=== PATIENT | female | born 1985 | race Hispanic/Latino ===

== ENCOUNTER 2019-11-04 07:35 | Outpatient (CLI) | payer MEDICARE, MEDICAID ==
--- NOTE | 2019-11-04 13:07 | NM ---
RADIONUCLIDE GASTRIC EMPTYING SCAN: HISTORY: Type 2 diabetes with diabetic autonomic polyneuropathy. Gastroparesis due to diabetes mellit us. Nausea and vomiting. RADIOPHARMACEUTICAL: 2 mCi technetium 99m sulfur colloid administered orally in scrambled eggs. FINDINGS: Gastric emptying at different times is as follows: 1 hour: 51% 2 hours: 75% 3 hours: 80% 4 hours: 88% The calculated gastric emptying half-time [id number]. IMPRESSION: Delayed gastric emptying.
== END 2019-11-04 07:36 | disposition home or self-care (01) ==
LOC: NM 07:35
PROVIDERS: ATTEND Internal Medicine
DX: E11.43 Type 2 diabetes mellitus with diabetic autonomic (poly)neuropathy (principal); K31.84 Gastroparesis; R11.2 Nausea with vomiting, unspecified
CPT/HCPCS: 78264; A9541

== ENCOUNTER 2020-08-16 23:08 | Inpatient (IN) | payer MEDICARE, MEDICAID ==
[2020-08-16 23:19] VITALS: BMI 37.1
[2020-08-17] MEDS ORDERED: HumaLOG 300 UNITS/3 ML VIAL SC PRN (00:09)
[2020-08-17] MEDS ORDERED: Dextrose 5% in Water 1,000 ML IV PRN (00:09)
[2020-08-17] MEDS ORDERED: Dextrose 50% Abboject 50 ML SYRINGE SLOW IVP PRN (00:09)
[2020-08-17] MEDS ORDERED: hydrALAZINE 20 MG/ML VIAL SLOW IVP SCH (00:15)
[2020-08-17] MEDS ORDERED: Metoclopramide HCl 10 MG/2 ML VIAL IVP SCH (00:15)
[2020-08-17] MEDS: Ondansetron ODT 4 MG TAB PO PRN (00:25)
[2020-08-17] MEDS ORDERED: Promethazine HCl 25 MG/ML VIAL IM PRN (00:39)
[2020-08-17] MEDS ORDERED: ERYTHROMYCIN IVPB SCH (01:17)
[2020-08-17 01:36] LABS: Anion Gap 22 mmol/L (10-20); BUN (Urea Nitrogen) 73 mg/dL (7.0-18.7); Calc. Creatinine Clearance 12 mL/min (70-130); Calcium 9.1 mg/dL (7.8-10.44); Carbon Dioxide 16 mmol/L (22-29); Chloride 97 mmol/L (98-107); Glucose 312 mg/dL (70-105); Potassium 6.2 mmol/L (3.5-5.1); Sodium 129 mmol/L (136-145)
[2020-08-17] MEDS ORDERED: Sodium Bicarb 50 MEQ/50 ML Abboject 8.4% SYRINGE IVP SCH (02:00)
[2020-08-17] MEDS ORDERED: Calcium Gluc 4.6 MEQ/10 ML (100 MG/ML) SLOW IVP SCH (02:00)
[2020-08-17] MEDS: Labetalol HCl 100 MG/20 ML VIAL SLOW IVP PRN ×2 (02:24→12:32)
[2020-08-17] MEDS ORDERED: Promethazine HCl 12.5 MG in Sodium Chloride 0.9% 50 ML IVPB PRN (02:25)
[2020-08-17] MEDS ORDERED: Albuterol Sulfate 1.25 MG/3 ML NEB NEB SCH (03:30)
[2020-08-17] MEDS ORDERED: hydrALAZINE 20 MG/ML VIAL SLOW IVP PRN (04:48)
[2020-08-17] MEDS ORDERED: clonazePAM 1 MG TAB PO PRN (05:04)
[2020-08-17 05:50] LABS: #Eosinphils 0.1 thou/uL (0.0-0.7); #Lymphocytes 1.3 thou/uL (1.20-3.40); #Monocytes 0.4 thou/uL (0.11-0.59); #Neutrophils 5.3 thou/uL (1.40-6.50); %Basophils 0.2 % (0.0-1.0); %Eosinophils 1.1 % (0.0-10.0); %Lymphocytes 18.6 % (21.0-51.0); %Monocytes 5.4 % (0.0-10.0); %Neutrophils 74.7 % (42.0-75.0); Hemoglobin 11.4 g/dL (12.0-16.0); Mean Corpuscular HGB CONC 33.1 g/dL (32.0-36.0); Mean Corpuscular Hemoglobin 29.5 pg (27.0-31.0); Mean Corpuscular Volume 89.2 fL (78.0-98.0); Mean Platelet Volume 7.8 fL (7.4-10.4); Platelet Count 265 thou/uL (130-400); Red Blood Cell (RBC) Count 3.86 mill/uL (4.20-5.40); White Blood Cell (WBC) Count 7.1 thou/uL (4.8-10.8)
[2020-08-17] MEDS ORDERED: Metoclopramide HCl 10 MG/2 ML VIAL IVP PRN (06:00)
[2020-08-17 06:08] LABS: BHCG - Serum Negative (NEGATIVE); Pregs Control Background? CLEAR/WHITE (CLR/WHITE); Pregs Control Bar Appear? YES (CONTROL BAR)
[2020-08-17 06:17] LABS: Anion Gap 21 mmol/L (10-20); BUN (Urea Nitrogen) 74 mg/dL (7.0-18.7); Calc. Creatinine Clearance 12 mL/min (70-130); Calcium 9.6 mg/dL (7.8-10.44); Carbon Dioxide 19 mmol/L (22-29); Chloride 98 mmol/L (98-107); Glucose 245 mg/dL (70-105); Potassium 5.9 mmol/L (3.5-5.1); Sodium 132 mmol/L (136-145)
[2020-08-17] MEDS: HumaLOG 300 UNITS/3 ML VIAL SC PRN (06:59)
[2020-08-17] MEDS: Carvedilol 25 MG TAB PO SCH ×2 (08:56→20:09)
[2020-08-17] MEDS: Mycophenolate 250 MG CAP PO SCH ×2 (08:56→20:10)
[2020-08-17] MEDS: Heparin 5,000 UNITS/ML VIAL SC SCH ×3 (08:56→20:09)
[2020-08-17] MEDS: Metoclopramide HCl 10 MG TAB PO SCH ×2 (08:56→12:48)
[2020-08-17] MEDS: Aspirin 81 mg Enteric Coated Tablet PO SCH (08:57)
[2020-08-17] MEDS: Tacrolimus 1 MG CAP PO SCH ×2 (08:57→20:10)
[2020-08-17] MEDS: NIFEdipine XL 60 MG TAB PO SCH ×2 (08:57→20:08)
[2020-08-17] MEDS ORDERED: Prevnar 13-Val Conj/PF 0.5 ML SYRINGE IM ONE (09:00)
[2020-08-17] MEDS ORDERED: Heparin 10,000 UNITS/ 10 ML VIAL ONE (09:06)
[2020-08-17 11:42] LABS: SARS-CoV-2 PCR by NAA Not Detected (NotDetected)
[2020-08-17] MEDS: Ondansetron PF 4 MG/2 ML Vial IVP PRN ×2 (12:29→18:22)
[2020-08-17] MEDS: Metoclopramide HCl 10 MG/2 ML VIAL IVP SCH ×3 (13:42→23:40)
[2020-08-17] MEDS ORDERED: Morphine 2 MG/ML VIAL SLOW IVP SCH (15:00)
[2020-08-17] MEDS ORDERED: Morphine 2 MG/ML VIAL SLOW IVP PRN (15:37)
[2020-08-18] MEDS: HYDROcodone/Acetaminophen 5/325 mg Tablet PO PRN ×3 (04:02→20:57)
[2020-08-18] MEDS: Ondansetron ODT 4 MG TAB PO PRN (04:03)
[2020-08-18] MEDS: Metoclopramide HCl 10 MG/2 ML VIAL IVP SCH ×2 (05:59→14:00)
[2020-08-18] MEDS ORDERED: Metoclopramide HCl 10 MG TAB PO SCH (07:30)
[2020-08-18] MEDS: Metoclopramide HCl 10 MG TAB PO SCH ×4 (08:00→20:48)
[2020-08-18] MEDS: NIFEdipine XL 60 MG TAB PO SCH ×2 (08:00→20:47)
[2020-08-18] MEDS: Carvedilol 25 MG TAB PO SCH ×2 (08:00→20:48)
[2020-08-18] MEDS: Aspirin 81 mg Enteric Coated Tablet PO SCH (08:01)
[2020-08-18] MEDS: Mycophenolate 250 MG CAP PO SCH ×2 (08:01→20:48)
[2020-08-18] MEDS: Tacrolimus 1 MG CAP PO SCH ×2 (08:01→20:47)
[2020-08-18] MEDS: Heparin 5,000 UNITS/ML VIAL SC SCH ×2 (08:01→20:49)
[2020-08-18] MEDS: HumaLOG 300 UNITS/3 ML VIAL SC PRN (17:34)
[2020-08-19 05:28] LABS: Hemoglobin 9.9 g/dL (12.0-16.0); Mean Corpuscular HGB CONC 33.1 g/dL (32.0-36.0); Mean Corpuscular Hemoglobin 29.9 pg (27.0-31.0); Mean Corpuscular Volume 90.1 fL (78.0-98.0); Mean Platelet Volume 7.3 fL (7.4-10.4); Platelet Count 266 thou/uL (130-400); RBC Distribution Width 15.2 % (11.5-14.5); Red Blood Cell (RBC) Count 3.32 mill/uL (4.20-5.40); White Blood Cell (WBC) Count 8.3 thou/uL (4.8-10.8)
[2020-08-19 05:53] LABS: Band 3 % (5-11); Lymphocytes 59 % (21-51); MDiff Complete? YES; Monocytes 11 % (0-10); Neutrophil 27 % (42-75)
[2020-08-19 07:34] LABS: Anion Gap 19 mmol/L (10-20); BUN (Urea Nitrogen) 37 mg/dL (7.0-18.7); Calc. Creatinine Clearance 15 mL/min (70-130); Calcium 8.5 mg/dL (7.8-10.44); Carbon Dioxide 25 mmol/L (22-29); Chloride 89 mmol/L (98-107); Glucose 131 mg/dL (70-105); Potassium 4.7 mmol/L (3.5-5.1); Sodium 128 mmol/L (136-145)
[2020-08-19 08:55] VITALS: TEMP 98.2
[2020-08-19] MEDS: Tacrolimus 1 MG CAP PO SCH (09:03)
[2020-08-19] MEDS: Aspirin 81 mg Enteric Coated Tablet PO SCH (09:03)
[2020-08-19] MEDS: NIFEdipine XL 60 MG TAB PO SCH (09:04)
[2020-08-19] MEDS: Mycophenolate 250 MG CAP PO SCH (09:04)
[2020-08-19] MEDS: Heparin 5,000 UNITS/ML VIAL SC SCH (09:04)
[2020-08-19] MEDS: Carvedilol 25 MG TAB PO SCH (09:05)
[2020-08-19] MEDS ORDERED: Heparin 10,000 UNITS/ 10 ML VIAL ONE (11:25)
[2020-08-19] MEDS: Metoclopramide HCl 10 MG TAB PO SCH ×3 (12:07→17:15)
[2020-08-19 17:31] VITALS: BP 130/62
== END 2020-08-19 17:30 | disposition home or self-care (01) | DRG 73 ==
LOC: 2SW 23:08 → OBSVTOIN 08-17 12:01
PROVIDERS: ADMIT Internal Medicine; ATTEND Hospitalist
PROC: 5A1D70Z Performance of Urinary Filtration, Intermittent, Less than 6 Hours Per Day (ICD-10-PCS; principal; 2020-08-17)
DX: E11.43 Type 2 diabetes mellitus with diabetic autonomic (poly)neuropathy (principal); N18.6 End stage renal disease; Z20.822 Contact with and (suspected) exposure to COVID-19; T86.12 Kidney transplant failure; E87.1 Hypo-osmolality and hyponatremia; Z94.83 Pancreas transplant status; Y83.0 Surgical operation with transplant of whole organ as the cause of abnormal reaction of the patient, or of later complication, without mention of misadventure at the time of the procedure; E11.65 Type 2 diabetes mellitus with hyperglycemia; E11.610 Type 2 diabetes mellitus with diabetic neuropathic arthropathy; K31.84 Gastroparesis; M79.7 Fibromyalgia; D63.1 Anemia in chronic kidney disease; E87.6 Hypokalemia; E87.5 Hyperkalemia; I95.9 Hypotension, unspecified; Z99.2 Dependence on renal dialysis; Z88.2 Allergy status to sulfonamides; Z79.82 Long term (current) use of aspirin; Z79.899 Other long term (current) drug therapy
CPT/HCPCS: 36415; 36416; 80048; 84703; 85025; 90935; 93005; 93010; 96374; 96375; G0257; G0378; J0360; J1644; J1815; J2001; J2270; J2405; J2550; J2765; J7507; J7517; Q0162; U0003; U0005

== ENCOUNTER 2021-02-21 17:25 | Observation (INO) | payer MEDICARE, MEDICAID ==
[2021-02-21 21:24] VITALS: BMI 32.7
[2021-02-21] MEDS ORDERED: Bisacodyl 5 MG TAB PO PRN (22:14)
[2021-02-21] MEDS ORDERED: Acetaminophen 325 MG TAB PO PRN (22:14)
[2021-02-21] MEDS ORDERED: Guaifenesin DM 100-10/5 ML UDCUP PO PRN (22:14)
[2021-02-21] MEDS ORDERED: Ondansetron PF 4 MG/2 ML Vial IVP PRN (22:14)
[2021-02-21] MEDS ORDERED: Senokot S 8.6-50 MG TAB PO PRN (22:14)
[2021-02-21] MEDS ORDERED: hydrALAZINE 20 MG/ML VIAL SLOW IVP PRN (22:18)
[2021-02-21] MEDS ORDERED: Melatonin 3 MG TAB PO PRN (22:18)
[2021-02-21] MEDS ORDERED: Carvedilol 25 MG TAB PO SCH (23:15)
[2021-02-21] MEDS ORDERED: NIFEdipine XL 60 MG TAB PO SCH (23:15)
[2021-02-21] MEDS ORDERED: Dextrose 5% in Water 1,000 ML IV PRN (23:35)
[2021-02-21] MEDS ORDERED: Dextrose 50% Abboject 50 ML SYRINGE SLOW IVP PRN (23:35)
[2021-02-21] MEDS ORDERED: HumaLOG 300 UNITS/3 ML VIAL SC PRN (23:35)
[2021-02-22 00:08] LABS: Anion Gap 18 mmol/L (10-20); BUN (Urea Nitrogen) 55 mg/dL (7.0-18.7); Calc. Creatinine Clearance 17 mL/min (70-130); Calcium 8.5 mg/dL (7.8-10.44); Carbon Dioxide 23 mmol/L (22-29); Chloride 95 mmol/L (98-107); Glucose 408 mg/dL (70-105); Magnesium 2.1 mg/dL (1.6-2.6); Potassium 5.3 mmol/L (3.5-5.1); Sodium 131 mmol/L (136-145)
[2021-02-22] MEDS: HumaLOG 300 UNITS/3 ML VIAL SC PRN ×2 (05:09→17:07)
[2021-02-22 05:39] LABS: #Lymphocytes 1.3 thou/uL (1.20-3.40); #Monocytes 0.3 thou/uL (0.11-0.59); #Neutrophils 3.4 thou/uL (1.40-6.50); %Basophils 0.3 % (0.0-1.0); %Eosinophils 0.9 % (0.0-10.0); %Lymphocytes 24.9 % (21.0-51.0); %Monocytes 6.1 % (0.0-10.0); %Neutrophils 67.8 % (42.0-75.0); Hemoglobin 8.1 g/dL (12.0-16.0); Mean Corpuscular Hemoglobin 30.4 pg (27.0-31.0); Mean Corpuscular Volume 92.1 fL (78.0-98.0); Mean Platelet Volume 8.9 fL (7.4-10.4); Platelet Count 135 thou/uL (130-400); RBC Distribution Width 16.9 % (11.5-14.5); Red Blood Cell (RBC) Count 2.67 mill/uL (4.20-5.40)
[2021-02-22 06:12] LABS: ALT (SGPT) 55 U/L (8-55); AST (SGOT) 66 U/L (5-34); Albumin 3.4 g/dL (3.5-5.0); Alkaline Phosphatase 68 U/L (40-110); Anion Gap 17 mmol/L (10-20); BUN (Urea Nitrogen) 57 mg/dL (7.0-18.7); Bilirubin, Total 0.5 mg/dL (0.2-1.2); Calc. Creatinine Clearance 16 mL/min (70-130); Calcium 8.5 mg/dL (7.8-10.44); Carbon Dioxide 24 mmol/L (22-29); Chloride 93 mmol/L (98-107); Globulin 3.6 g/dL (2.4-3.5); Glucose 483 mg/dL (70-105); Potassium 5.3 mmol/L (3.5-5.1); Sodium 129 mmol/L (136-145)
[2021-02-22] MEDS ORDERED: Linaclotide [Linzess] 145 MCG Capsule PO SCH (07:30)
[2021-02-22] MEDS ORDERED: Famotidine/PF 20 mg/2ml Vial SLOW IVP SCH (09:00)
[2021-02-22] MEDS ORDERED: Heparin 5,000 UNITS/ML VIAL SC SCH (09:00)
[2021-02-22] MEDS ORDERED: Carvedilol 25 MG TAB PO SCH (09:00)
[2021-02-22] MEDS ORDERED: NIFEdipine XL 60 MG TAB PO SCH (09:00)
[2021-02-22] MEDS: Metoclopramide HCl 10 MG TAB PO SCH ×3 (09:02→16:08)
[2021-02-22] MEDS ORDERED: HYDROcodone/Acetaminophen 5/325 mg Tablet PO PRN (15:04)
[2021-02-22 16:05] VITALS: TEMP 98.5
[2021-02-22 16:09] VITALS: BP 159/71
[2021-02-22] MEDS ORDERED: Lantus 1000 UNITS/10 ML VIAL SC SCH (21:00)
[2021-02-24] MEDS ORDERED: Prevnar 13-Val Conj/PF 0.5 ML SYRINGE IM ONE (09:00)
[2021-02-24] MEDS ORDERED: FLU VACC QS2021-22(6MOS UP)/PF 60 MCG/0.5 ML SYRINGE IM ONE (09:00)
== END 2021-02-22 18:05 | disposition home or self-care (01) ==
LOC: 2SW 17:25
PROVIDERS: ADMIT Family Medicine; ATTEND Internal Medicine
DX: E87.70 Fluid overload, unspecified (principal); I13.11 Hypertensive heart and chronic kidney disease without heart failure, with stage 5 chronic kidney disease, or end stage renal disease; E11.21 Type 2 diabetes mellitus with diabetic nephropathy; E11.22 Type 2 diabetes mellitus with diabetic chronic kidney disease; N18.6 End stage renal disease; E11.43 Type 2 diabetes mellitus with diabetic autonomic (poly)neuropathy; K31.84 Gastroparesis; G43.909 Migraine, unspecified, not intractable, without status migrainosus; M79.7 Fibromyalgia; G89.29 Other chronic pain; M54.9 Dorsalgia, unspecified; E87.5 Hyperkalemia; I08.8 Other rheumatic multiple valve diseases; R06.89 Other abnormalities of breathing; Z79.4 Long term (current) use of insulin; Z79.899 Other long term (current) drug therapy; Z88.2 Allergy status to sulfonamides; Z94.0 Kidney transplant status; Z94.83 Pancreas transplant status; Z90.5 Acquired absence of kidney; Z99.2 Dependence on renal dialysis
CPT/HCPCS: 36415; 36416; 80053; 83735; 84100; 84145; 85025; 85652; 86140; 93306; 96372; G0378; J1644; J1815

== ENCOUNTER 2021-03-03 21:04 | Observation (INO) | payer MEDICARE, MEDICAID ==
[2021-03-03] MEDS ORDERED: Ondansetron ODT 4 MG TAB SL PRN (21:30)
[2021-03-03] MEDS ORDERED: Acetaminophen 325 MG TAB PO PRN (21:30)
[2021-03-03] MEDS ORDERED: Ondansetron PF 4 MG/2 ML Vial IVP PRN ×2 (21:30→22:34)
[2021-03-03] MEDS ORDERED: hydrALAZINE 20 MG/ML VIAL SLOW IVP SCH (22:15)
[2021-03-03] MEDS ORDERED: Senokot S 8.6-50 MG TAB PO PRN (22:27)
[2021-03-03] MEDS ORDERED: Bisacodyl 5 MG TAB PO PRN (22:27)
[2021-03-03] MEDS ORDERED: HYDROcodone/Acetaminophen 5/325 mg Tablet PO PRN (22:27)
[2021-03-03] MEDS ORDERED: Melatonin 3 MG TAB PO PRN (22:34)
[2021-03-03] MEDS ORDERED: hydrALAZINE 20 MG/ML VIAL SLOW IVP PRN (22:34)
[2021-03-03] MEDS ORDERED: Heparin 5,000 UNITS/ML VIAL SC SCH (22:45)
[2021-03-03] MEDS: Famotidine/PF 20 mg/2ml Vial SLOW IVP SCH (22:47)
[2021-03-03] MEDS: HYDROcodone/Acetaminophen 7.5/325 mg Tablet PO PRN (22:49)
[2021-03-03] MEDS ORDERED: Dextrose 50% Abboject 50 ML SYRINGE SLOW IVP PRN (23:26)
[2021-03-03] MEDS ORDERED: Dextrose 5% in Water 1,000 ML IV PRN (23:26)
[2021-03-03] MEDS ORDERED: HumaLOG 300 UNITS/3 ML VIAL SC PRN ×2 (23:26)
[2021-03-04 00:33] LABS: SARS-CoV-2 NAA Rapid Test Not Detected (NotDetected)
[2021-03-04 00:56] VITALS: BMI 33.6
[2021-03-04] MEDS: Famotidine/PF 20 mg/2ml Vial SLOW IVP SCH (05:53)
[2021-03-04] MEDS: HYDROcodone/Acetaminophen 7.5/325 mg Tablet PO PRN (05:53)
[2021-03-04 06:30] LABS: #Lymphocytes 1.6 thou/uL (1.20-3.40); #Monocytes 0.2 thou/uL (0.11-0.59); #Neutrophils 3.1 thou/uL (1.40-6.50); %Eosinophils 0.3 % (0.0-10.0); %Lymphocytes 31.7 % (21.0-51.0); %Monocytes 4.4 % (0.0-10.0); %Neutrophils 63.6 % (42.0-75.0); Hemoglobin 8.3 g/dL (12.0-16.0); Mean Corpuscular Hemoglobin 30.9 pg (27.0-31.0); Mean Corpuscular Volume 96.4 fL (78.0-98.0); Platelet Count 192 thou/uL (130-400); RBC Distribution Width 18.2 % (11.5-14.5); Red Blood Cell (RBC) Count 2.69 mill/uL (4.20-5.40); White Blood Cell (WBC) Count 4.9 thou/uL (4.8-10.8)
[2021-03-04 06:41] LABS: Hemoglobin A1c 7.7 % (4.0-6.0)
[2021-03-04 06:51] LABS: Anion Gap 17 mmol/L (10-20); BUN (Urea Nitrogen) 48 mg/dL (7.0-18.7); Calc. Creatinine Clearance 15 mL/min (70-130); Calcium 9.8 mg/dL (7.8-10.44); Carbon Dioxide 22 mmol/L (22-29); Chloride 95 mmol/L (98-107); Sodium 129 mmol/L (136-145)
[2021-03-04 06:53] LABS: Glucose 568 mg/dL (70-105)
[2021-03-04] MEDS ORDERED: GUAIFENESIN 400 MG PO PRN (08:11)
[2021-03-04] MEDS ORDERED: guaiFENesin 200 MG TAB PO PRN (08:20)
[2021-03-04] MEDS ORDERED: Tacrolimus 1 MG CAP PO SCH (09:00)
[2021-03-04] MEDS ORDERED: Non-Formulary Item 1 EACH (Calcium Acetate [Calcium Acetate] 667 MG Tablet) PO SCH (09:00)
[2021-03-04] MEDS ORDERED: predniSONE 5 MG TAB PO SCH (09:00)
[2021-03-04] MEDS ORDERED: Lantus 1000 UNITS/10 ML VIAL SC SCH (09:00)
[2021-03-04] MEDS ORDERED: Carvedilol 25 MG TAB PO SCH (09:00)
[2021-03-04] MEDS ORDERED: Non-Formulary Item 1 EACH (Metoclopramide Hcl [Reglan] 5 MG Tablet) PO SCH (09:00)
[2021-03-04] MEDS ORDERED: Heparin 5,000 UNITS/ML VIAL SC SCH (09:00)
[2021-03-04] MEDS ORDERED: NIFEdipine XL 60 MG TAB PO SCH (09:00)
[2021-03-04] MEDS: Metoclopramide HCl 10 MG TAB PO SCH ×2 (09:25→14:58)
[2021-03-04] MEDS ORDERED: HumaLOG 300 UNITS/3 ML VIAL SC SCH ×2 (11:30)
[2021-03-04] MEDS: Calcium Acetate 667 MG CAP PO SCH ×2 (14:34→14:58)
[2021-03-04 14:38] VITALS: BP 168/90; TEMP 98.4
[2021-03-05] MEDS ORDERED: Linaclotide [Linzess] 145 MCG Capsule PO SCH (07:30)
[2021-03-05] MEDS ORDERED: Non-Formulary Item 1 EACH (Linaclotide [Linzess] 145 MCG Capsule) PO SCH (07:30)
[2021-03-06] MEDS ORDERED: FLU VACC QS2021-22(6MOS UP)/PF 60 MCG/0.5 ML SYRINGE IM ONE (09:00)
== END 2021-03-04 15:00 | disposition home or self-care (01) ==
LOC: 2NO 21:29
PROVIDERS: ADMIT Student in an Organized Health Care Education/Training Program; ATTEND Internal Medicine
DX: E87.5 Hyperkalemia (principal); E87.70 Fluid overload, unspecified; E11.21 Type 2 diabetes mellitus with diabetic nephropathy; E11.22 Type 2 diabetes mellitus with diabetic chronic kidney disease; N18.6 End stage renal disease; D63.1 Anemia in chronic kidney disease; E11.43 Type 2 diabetes mellitus with diabetic autonomic (poly)neuropathy; K31.84 Gastroparesis; M79.7 Fibromyalgia; G89.29 Other chronic pain; M54.9 Dorsalgia, unspecified; E11.40 Type 2 diabetes mellitus with diabetic neuropathy, unspecified; I16.0 Hypertensive urgency; I11.9 Hypertensive heart disease without heart failure; Z79.4 Long term (current) use of insulin; Z79.52 Long term (current) use of systemic steroids; Z79.899 Other long term (current) drug therapy; Z88.2 Allergy status to sulfonamides; Z90.5 Acquired absence of kidney; Z94.0 Kidney transplant status; Z94.83 Pancreas transplant status; Z99.2 Dependence on renal dialysis; Z20.822 Contact with and (suspected) exposure to COVID-19
CPT/HCPCS: 0240U; 80048; 82962; 83036; 85025; 36415; 36416; 90935; 96372; 96374; 96375; 96376; G0257; G0378; J0360; J1644; J1815; J2405; J7507; S0028

== ENCOUNTER 2021-03-16 19:43 | Inpatient (IN) | payer MEDICARE, MEDICAID ==
[2021-03-16 20:10] VITALS: BMI 32.9
[2021-03-16] MEDS ORDERED: Dextrose 5% in Water 1,000 ML IV PRN (23:11)
[2021-03-16] MEDS ORDERED: Dextrose 50% Abboject 50 ML SYRINGE SLOW IVP PRN (23:11)
[2021-03-16] MEDS ORDERED: Acetaminophen 325 MG TAB PO PRN (23:11)
[2021-03-16] MEDS ORDERED: HumaLOG 300 UNITS/3 ML VIAL SC PRN ×2 (23:11)
[2021-03-16] MEDS ORDERED: Acetaminophen 650 MG Suppository PR PRN (23:11)
[2021-03-16] MEDS ORDERED: Benzonatate 100 MG CAP PO PRN (23:18)
[2021-03-16] MEDS ORDERED: Lantus 1000 UNITS/10 ML VIAL SC SCH (23:30)
[2021-03-16] MEDS: Ondansetron ODT 4 MG TAB PO PRN (23:45)
[2021-03-17] MEDS: HumaLOG 300 UNITS/3 ML VIAL SC PRN ×2 (00:12→02:10)
[2021-03-17 00:45] LABS: #Lymphocytes 0.4 thou/uL (1.20-3.40); #Neutrophils 1.9 thou/uL (1.40-6.50); %Basophils 1.1 % (0.0-1.0); %Eosinophils 0.3 % (0.0-10.0); %Lymphocytes 17.4 % (21.0-51.0); %Monocytes 0.6 % (0.0-10.0); %Neutrophils 80.6 % (42.0-75.0); Hemoglobin 8.4 g/dL (12.0-16.0); Mean Corpuscular HGB CONC 30.1 g/dL (32.0-36.0); Mean Corpuscular Hemoglobin 29.2 pg (27.0-31.0); Mean Platelet Volume 9.4 fL (7.4-10.4); Platelet Count 126 thou/uL (130-400); RBC Distribution Width 15.8 % (11.5-14.5); Red Blood Cell (RBC) Count 2.87 mill/uL (4.20-5.40); White Blood Cell (WBC) Count 2.3 thou/uL (4.8-10.8)
[2021-03-17 01:04] LABS: Anion Gap 28 mmol/L (10-20); BUN (Urea Nitrogen) 59 mg/dL (7.0-18.7); Calc. Creatinine Clearance 12 mL/min (70-130); Carbon Dioxide 14 mmol/L (22-29); Chloride 90 mmol/L (98-107); Magnesium 2.1 mg/dL (1.6-2.6); Sodium 126 mmol/L (136-145)
[2021-03-17 01:09] LABS: Glucose 641 mg/dL (70-105)
[2021-03-17] MEDS ORDERED: Lantus 1000 UNITS/10 ML VIAL SC SCH ×2 (02:00→21:00)
[2021-03-17] MEDS ORDERED: D5 1/2 NS w/20 mEq KCL 1,000 ML IV PRN (04:56)
[2021-03-17] MEDS ORDERED: Electrolyte Replacement Protocol 1 EACH IVPB ONE (04:56)
[2021-03-17] MEDS ORDERED: Sodium Chloride 0.9% 1,000 ML IV PRN (04:56)
[2021-03-17] MEDS ORDERED: Dextrose 5 %-0.45 % NaCl 1,000 ML IV PRN (04:56)
[2021-03-17] MEDS ORDERED: HUMULIN R 100 UNITS in Sodium Chloride 0.9% 100 ML IVPB SCH (05:00)
[2021-03-17 05:34] LABS: Actual Bicarbonate (HCO3a) 20.2 mEq/L (22-28); Base Excess (BEa) -3.4 mEq/L (-2.0 to +3.0); CO2 Tension 29.6 mmHg (35.0-45.0); Calcium, Ionized (arterial) 0.98 mmol/L (1.12-1.30); Carboxyhemoglobin (COHb) 1.2 gm% (0.0-3.0); Hemoglobin (Hb) 6.6 g/dL (12.0-16.0); O2 Tension (PaO2), arterial 93.3 mmHg (80.0-100.0); Potassium - ABG Lab 4.95 mmol/L (3.70-5.30); pH, Arterial 7.45 (7.35-7.45)
[2021-03-17 05:35] LABS: Puncture Site RRA
[2021-03-17] MEDS: Ondansetron PF 4 MG/2 ML Vial IVP PRN ×2 (05:51→21:23)
[2021-03-17 07:20] LABS: Anion Gap 21 mmol/L (10-20); BUN (Urea Nitrogen) 62 mg/dL (7.0-18.7); Calc. Creatinine Clearance 11 mL/min (70-130); Calcium 7.9 mg/dL (7.8-10.44); Carbon Dioxide 21 mmol/L (22-29); Chloride 90 mmol/L (98-107); Glucose 442 mg/dL (70-105); Potassium 5.1 mmol/L (3.5-5.1); Sodium 127 mmol/L (136-145)
[2021-03-17] MEDS: Heparin 5,000 UNITS/ML VIAL SC SCH ×3 (09:12→20:43)
[2021-03-17] MEDS: guaiFENesin ER 600 MG TAB PO SCH ×2 (09:12→20:43)
[2021-03-17] MEDS ORDERED: EPOETIN ALFA-EPBX (ESRD) 3,000 UNIT/ML VIAL SC SCH (10:15)
[2021-03-17] MEDS: HYDROcodone/Acetaminophen 5/325 mg Tablet PO PRN ×2 (12:01→21:22)
[2021-03-17 12:02] LABS: Chloride 95 mmol/L (98-107); Potassium 3.7 mmol/L (3.5-5.1); Sodium 134 mmol/L (136-145)
[2021-03-17] MEDS: Ondansetron ODT 4 MG TAB PO PRN (12:02)
[2021-03-17 12:03] LABS: Calcium 8.7 mg/dL (7.8-10.44); Glucose 76 mg/dL (70-105)
[2021-03-17 12:05] LABS: Anion Gap 18 mmol/L (10-20); Carbon Dioxide 25 mmol/L (22-29)
[2021-03-17 12:07] LABS: BUN (Urea Nitrogen) 30 mg/dL (7.0-18.7); Calc. Creatinine Clearance 21 mL/min (70-130)
[2021-03-17] MEDS: Lantus 1000 UNITS/10 ML VIAL SC SCH (13:20)
[2021-03-17 14:26] LABS: HBSAg Index 0.26 S/CO (0-0.99); Hep B Surf Ag Non-Reactive S/CO (NonReactive)
[2021-03-17 14:29] LABS: HBSAB Concentration 17.67 mIU/mL; Hep B Surf AB Reactive (NonReactive)
[2021-03-17] MEDS: HumaLOG 300 UNITS/3 ML VIAL SC SCH ×2 (16:33→17:47)
[2021-03-17] MEDS: NIFEdipine XL 60 MG TAB PO SCH (21:22)
[2021-03-17] MEDS: Carvedilol 25 MG TAB PO SCH (21:22)
[2021-03-18] MEDS: guaiFENesin ER 600 MG TAB PO SCH ×2 (09:55→20:12)
[2021-03-18] MEDS: Heparin 5,000 UNITS/ML VIAL SC SCH ×3 (09:55→20:14)
[2021-03-18] MEDS: Carvedilol 25 MG TAB PO SCH ×2 (09:55→20:12)
[2021-03-18] MEDS: NIFEdipine XL 60 MG TAB PO SCH ×2 (09:55→20:13)
[2021-03-18] MEDS: HumaLOG 300 UNITS/3 ML VIAL SC SCH ×3 (10:56→16:07)
[2021-03-18 11:27] LABS: #Lymphocytes 1.6 thou/uL (1.20-3.40); #Monocytes 0.2 thou/uL (0.11-0.59); #Neutrophils 1.8 thou/uL (1.40-6.50); %Basophils 0.4 % (0.0-1.0); %Eosinophils 0.4 % (0.0-10.0); %Lymphocytes 44.4 % (21.0-51.0); %Monocytes 5.6 % (0.0-10.0); %Neutrophils 49.3 % (42.0-75.0); Hemoglobin 8.1 g/dL (12.0-16.0); Mean Corpuscular HGB CONC 30.9 g/dL (32.0-36.0); Mean Corpuscular Hemoglobin 29.5 pg (27.0-31.0); Mean Corpuscular Volume 95.5 fL (78.0-98.0); Mean Platelet Volume 8.9 fL (7.4-10.4); Platelet Count 150 thou/uL (130-400); RBC Distribution Width 15.9 % (11.5-14.5); Red Blood Cell (RBC) Count 2.74 mill/uL (4.20-5.40); White Blood Cell (WBC) Count 3.7 thou/uL (4.8-10.8)
[2021-03-18 11:40] LABS: Anion Gap 20 mmol/L (10-20); BUN (Urea Nitrogen) 33 mg/dL (7.0-18.7); Calc. Creatinine Clearance 15 mL/min (70-130); Carbon Dioxide 24 mmol/L (22-29); Chloride 94 mmol/L (98-107); Glucose 285 mg/dL (70-105); Magnesium 1.9 mg/dL (1.6-2.6); Potassium 4.6 mmol/L (3.5-5.1); Sodium 133 mmol/L (136-145)
[2021-03-18] MEDS: Lantus 1000 UNITS/10 ML VIAL SC SCH (13:23)
[2021-03-18] MEDS: HumaLOG 300 UNITS/3 ML VIAL SC PRN (13:23)
[2021-03-18] MEDS ORDERED: Doxycycline 100 MG CAP PO SCH (19:30)
[2021-03-18] MEDS ORDERED: cefTRIAXone\\ROCEPHIN 1 GM in Sodium Chloride 0.9% 100 ML IVPB SCH (19:30)
[2021-03-18] MEDS: HYDROcodone/Acetaminophen 5/325 mg Tablet PO PRN (20:41)
[2021-03-19] MEDS: Ondansetron ODT 4 MG TAB PO PRN (02:47)
[2021-03-19] MEDS: NIFEdipine XL 60 MG TAB PO SCH ×2 (08:15→20:26)
[2021-03-19] MEDS: Carvedilol 25 MG TAB PO SCH ×3 (08:15→20:32)
[2021-03-19] MEDS: HumaLOG 300 UNITS/3 ML VIAL SC SCH ×3 (08:15→18:15)
[2021-03-19] MEDS: guaiFENesin ER 600 MG TAB PO SCH ×2 (08:16→20:28)
[2021-03-19] MEDS: Heparin 5,000 UNITS/ML VIAL SC SCH ×3 (08:17→20:31)
[2021-03-19] MEDS ORDERED: Doxycycline 100 MG CAP PO SCH (09:00)
[2021-03-19] MEDS: Lantus 1000 UNITS/10 ML VIAL SC SCH (13:34)
[2021-03-19 16:03] LABS: Anion Gap 16 mmol/L (10-20); BUN (Urea Nitrogen) 17 mg/dL (7.0-18.7); Calc. Creatinine Clearance 27 mL/min (70-130); Calcium 8.3 mg/dL (7.8-10.44); Carbon Dioxide 26 mmol/L (22-29); Chloride 98 mmol/L (98-107); Glucose 124 mg/dL (70-105); Potassium 4.1 mmol/L (3.5-5.1); Sodium 136 mmol/L (136-145)
[2021-03-19] MEDS ORDERED: HumaLOG 300 UNITS/3 ML VIAL SC PRN ×2 (18:50→18:56)
[2021-03-19] MEDS ORDERED: Acetaminophen 650 MG Suppository PR PRN (18:51)
[2021-03-19] MEDS ORDERED: Acetaminophen 325 MG TAB PO PRN (18:51)
[2021-03-19] MEDS ORDERED: Ondansetron PF 4 MG/2 ML Vial IVP PRN (18:54)
[2021-03-19] MEDS ORDERED: Ondansetron ODT 4 MG TAB PO PRN (18:54)
[2021-03-19] MEDS ORDERED: Dextrose 5% in Water 1,000 ML IV PRN (18:55)
[2021-03-19] MEDS ORDERED: Benzonatate 100 MG CAP PO PRN (18:55)
[2021-03-19] MEDS ORDERED: Dextrose 50% Abboject 50 ML SYRINGE SLOW IVP PRN (18:55)
[2021-03-19] MEDS ORDERED: Dextrose 5 %-0.45 % NaCl 1,000 ML IV PRN (18:56)
[2021-03-19] MEDS ORDERED: D5 1/2 NS w/20 mEq KCL 1,000 ML IV PRN (18:56)
[2021-03-19] MEDS ORDERED: Sodium Chloride 0.9% 1,000 ML IV PRN (18:57)
[2021-03-19] MEDS ORDERED: cefTRIAXone\\ROCEPHIN 1 GM in Sodium Chloride 0.9% 100 ML IVPB SCH (20:00)
[2021-03-19] MEDS: HYDROcodone/Acetaminophen 5/325 mg Tablet PO PRN (20:28)
[2021-03-19] MEDS: Doxycycline 100 MG CAP PO SCH (20:29)
[2021-03-19] MEDS ORDERED: EPOETIN ALFA-EPBX (ESRD) 3,000 UNIT/ML VIAL SC SCH (21:00)
[2021-03-20 08:28] LABS: Anion Gap 18 mmol/L (10-20); BUN (Urea Nitrogen) 26 mg/dL (7.0-18.7); Calc. Creatinine Clearance 18 mL/min (70-130); Calcium 7.6 mg/dL (7.8-10.44); Carbon Dioxide 23 mmol/L (22-29); Chloride 97 mmol/L (98-107); Glucose 272 mg/dL (70-105); Potassium 5.6 mmol/L (3.5-5.1); Sodium 132 mmol/L (136-145)
[2021-03-20] MEDS: HumaLOG 300 UNITS/3 ML VIAL SC SCH ×2 (08:36→12:09)
[2021-03-20] MEDS: NIFEdipine XL 60 MG TAB PO SCH (08:37)
[2021-03-20] MEDS: Carvedilol 25 MG TAB PO SCH (08:37)
[2021-03-20] MEDS: Doxycycline 100 MG CAP PO SCH (08:38)
[2021-03-20] MEDS: Heparin 5,000 UNITS/ML VIAL SC SCH (08:38)
[2021-03-20] MEDS: guaiFENesin ER 600 MG TAB PO SCH (08:38)
[2021-03-20] MEDS ORDERED: Lantus 1000 UNITS/10 ML VIAL SC SCH (12:00)
[2021-03-20] MEDS: HYDROcodone/Acetaminophen 5/325 mg Tablet PO PRN (12:18)
[2021-03-20 12:46] VITALS: BP 127/71; TEMP 98.6
== END 2021-03-20 13:21 | disposition home or self-care (01) | DRG 177 ==
LOC: 2SW 19:43 → CCU 03-17 05:37 → T4-A 03-18 17:22 → UNDODISIN 03-19 08:36
PROVIDERS: ADMIT Family Medicine; ATTEND Internal Medicine
PROC: 5A1D70Z Performance of Urinary Filtration, Intermittent, Less than 6 Hours Per Day (ICD-10-PCS; principal; 2021-03-16)
PROC: 8E0ZXY6 Isolation (ICD-10-PCS; 2021-03-16)
DX: U07.1 COVID-19 (principal); J12.82 Pneumonia due to coronavirus disease 2019; J96.01 Acute respiratory failure with hypoxia; N18.6 End stage renal disease; Z94.83 Pancreas transplant status; E87.1 Hypo-osmolality and hyponatremia; I12.0 Hypertensive chronic kidney disease with stage 5 chronic kidney disease or end stage renal disease; T86.12 Kidney transplant failure; E87.2 Acidosis; Y83.0 Surgical operation with transplant of whole organ as the cause of abnormal reaction of the patient, or of later complication, without mention of misadventure at the time of the procedure; D63.1 Anemia in chronic kidney disease; E87.5 Hyperkalemia; E11.22 Type 2 diabetes mellitus with diabetic chronic kidney disease; Z88.2 Allergy status to sulfonamides; Z79.4 Long term (current) use of insulin; Z79.899 Other long term (current) drug therapy
CPT/HCPCS: 36415; 36416; 36600; 80048; 82010; 82805; 83735; 84100; 85025; 86706; 87340; J0696; J1644; J1815; J2405; J3490; Q0162

== ENCOUNTER 2021-06-22 22:15 | Inpatient (IN) | payer MEDICARE, MEDICAID ==
[2021-06-22] MEDS ORDERED: Insulin Regular 300 UNITS/3 ML VIAL ONE (22:40)
[2021-06-22] MEDS ORDERED: Calcium Chloride 1 GM/10 ML Abboject SYRINGE ONE (22:40)
[2021-06-22] MEDS ORDERED: Sodium Bicarb 50 MEQ/50 ML Abboject 8.4% SYRINGE ONE (22:40)
[2021-06-22 22:45] LABS: Actual Bicarbonate (HCO3v) 23 mEq/L (22-28); Analyzer IN Cardio ER; Base Excess 0.6 mEq/L (-2.0 to +3.0); Calcium, Ionized (venous) 0.94 mmol/L (1.16-1.32); Chloride (VBG) 97 mmol/L (98-106); Hemoglobin (Hb) 12.7 g/dL (11.7-15.5); Sodium 130.5 mmol/L (133-146)
[2021-06-22] MEDS ORDERED: LOKELMA 10 GM PACKET PO SCH (22:45)
[2021-06-22 22:52] LABS: #Lymphocytes 1.9 thou/uL (1.20-3.40); #Monocytes 0.3 thou/uL (0.11-0.59); #Neutrophils 2.8 thou/uL (1.40-6.50); %Basophils 0.2 % (0.0-1.0); %Eosinophils 0.2 % (0.0-10.0); %Lymphocytes 37.5 % (21.0-51.0); %Neutrophils 57.1 % (42.0-75.0); Hemoglobin 12.2 g/dL (12.0-16.0); Mean Corpuscular HGB CONC 31.9 g/dL (32.0-36.0); Mean Corpuscular Hemoglobin 30.7 pg (27.0-31.0); Mean Corpuscular Volume 96.3 fL (78.0-98.0); Mean Platelet Volume 7.9 fL (7.4-10.4); Platelet Count 153 thou/uL (130-400); RBC Distribution Width 16.9 % (11.5-14.5); Red Blood Cell (RBC) Count 3.96 mill/uL (4.20-5.40); White Blood Cell (WBC) Count 4.9 thou/uL (4.8-10.8)
[2021-06-22] MEDS ORDERED: Albuterol Sulfate 2.5 mg/0.5 ml Neb ONE (23:03)
[2021-06-22] MEDS ORDERED: Albuterol Sulfate 2.5 mg/3 ml Neb ONE (23:03)
[2021-06-22 23:13] LABS: ALT (SGPT) 20 U/L (8-55); AST (SGOT) 18 U/L (5-34); Albumin 3.5 g/dL (3.5-5.0); Alkaline Phosphatase 84 U/L (40-110); Anion Gap 20 mmol/L (10-20); BUN (Urea Nitrogen) 51 mg/dL (7.0-18.7); Bilirubin, Total 0.4 mg/dL (0.2-1.2); Calc. Creatinine Clearance 0 mL/min (70-130); Calcium 8.8 mg/dL (7.8-10.44); Carbon Dioxide 22 mmol/L (22-29); Chloride 97 mmol/L (98-107); Globulin 3.8 g/dL (2.4-3.5); Glucose 308 mg/dL (70-105); Potassium 6.2 mmol/L (3.5-5.1); Protein, Total 7.3 g/dL (6.0-8.3); Sodium 133 mmol/L (136-145)
[2021-06-22] MEDS ORDERED: Dextrose 5% in Water 1,000 ML IV PRN (23:17)
[2021-06-22] MEDS ORDERED: HumaLOG 300 UNITS/3 ML VIAL SC PRN (23:17)
[2021-06-22] MEDS ORDERED: Ondansetron ODT 4 MG TAB PO PRN (23:23)
[2021-06-22] MEDS ORDERED: Acetaminophen 325 MG TAB PO PRN (23:23)
[2021-06-22] MEDS ORDERED: Ondansetron PF 4 MG/2 ML Vial IVP PRN (23:23)
[2021-06-22] MEDS ORDERED: Acetaminophen 650 MG Suppository PR PRN (23:23)
[2021-06-22] MEDS ORDERED: Labetalol HCl 100 MG/20 ML VIAL ONE (23:34)
[2021-06-23] MEDS: Dextrose 50% Abboject 50 ML SYRINGE SLOW IVP PRN ×2 (02:13→03:57)
[2021-06-23 06:46] LABS: #Lymphocytes 1.3 thou/uL (1.20-3.40); #Monocytes 0.3 thou/uL (0.11-0.59); #Neutrophils 3.2 thou/uL (1.40-6.50); %Basophils 0.3 % (0.0-1.0); %Eosinophils 0.3 % (0.0-10.0); %Lymphocytes 27.8 % (21.0-51.0); %Monocytes 5.2 % (0.0-10.0); %Neutrophils 66.4 % (42.0-75.0); Mean Corpuscular HGB CONC 31.6 g/dL (32.0-36.0); Mean Corpuscular Hemoglobin 30.9 pg (27.0-31.0); Mean Platelet Volume 7.9 fL (7.4-10.4); Platelet Count 170 thou/uL (130-400); RBC Distribution Width 16.7 % (11.5-14.5); Red Blood Cell (RBC) Count 3.87 mill/uL (4.20-5.40); White Blood Cell (WBC) Count 4.8 thou/uL (4.8-10.8)
[2021-06-23 06:48] LABS: ALT (SGPT) 19 U/L (8-55); AST (SGOT) 21 U/L (5-34); Albumin 3.6 g/dL (3.5-5.0); Alkaline Phosphatase 86 U/L (40-110); Anion Gap 19 mmol/L (10-20); BUN (Urea Nitrogen) 22 mg/dL (7.0-18.7); Bilirubin, Total 0.7 mg/dL (0.2-1.2); Calc. Creatinine Clearance 0 mL/min (70-130); Calcium 8.8 mg/dL (7.8-10.44); Carbon Dioxide 23 mmol/L (22-29); Chloride 97 mmol/L (98-107); Globulin 4.1 g/dL (2.4-3.5); Glucose 243 mg/dL (70-105); Potassium 4.6 mmol/L (3.5-5.1); Protein, Total 7.7 g/dL (6.0-8.3); Sodium 134 mmol/L (136-145)
[2021-06-23] MEDS: Heparin 5,000 UNITS/ML VIAL SC SCH ×2 (08:39→16:48)
[2021-06-23] MEDS ORDERED: Carvedilol 25 MG TAB PO SCH (09:00)
[2021-06-23] MEDS ORDERED: NIFEdipine XL 60 MG TAB PO SCH (09:00)
[2021-06-23 10:35] VITALS: BMI 32.5
[2021-06-23] MEDS: HumaLOG 300 UNITS/3 ML VIAL SC PRN ×2 (10:43→15:03)
[2021-06-23 11:21] LABS: ALT (SGPT) 20 U/L (8-55); AST (SGOT) 18 U/L (5-34); Albumin 3.8 g/dL (3.5-5.0); Alkaline Phosphatase 96 U/L (40-110); Anion Gap 20 mmol/L (10-20); BUN (Urea Nitrogen) 27 mg/dL (7.0-18.7); Bilirubin, Total 0.7 mg/dL (0.2-1.2); Calc. Creatinine Clearance 24 mL/min (70-130); Calcium 8.9 mg/dL (7.8-10.44); Carbon Dioxide 23 mmol/L (22-29); Chloride 94 mmol/L (98-107); Globulin 4.3 g/dL (2.4-3.5); Glucose 450 mg/dL (70-105); Potassium 5.2 mmol/L (3.5-5.1); Protein, Total 8.1 g/dL (6.0-8.3); Sodium 132 mmol/L (136-145)
[2021-06-23 15:08] VITALS: BP 174/87; TEMP 99
== END 2021-06-23 18:11 | disposition home or self-care (01) | DRG 73 ==
LOC: ERS 22:15 → ERHOLD 22:52 → 2NO 06-23 09:45
PROVIDERS: ADMIT Student in an Organized Health Care Education/Training Program; ATTEND Hospitalist
DX: E11.43 Type 2 diabetes mellitus with diabetic autonomic (poly)neuropathy (principal); N18.6 End stage renal disease; I13.2 Hypertensive heart and chronic kidney disease with heart failure and with stage 5 chronic kidney disease, or end stage renal disease; Z94.83 Pancreas transplant status; T86.12 Kidney transplant failure; E87.1 Hypo-osmolality and hyponatremia; Z20.822 Contact with and (suspected) exposure to COVID-19; E11.65 Type 2 diabetes mellitus with hyperglycemia; E87.70 Fluid overload, unspecified; E11.22 Type 2 diabetes mellitus with diabetic chronic kidney disease; M79.7 Fibromyalgia; F41.9 Anxiety disorder, unspecified; K31.84 Gastroparesis; D63.1 Anemia in chronic kidney disease; Z98.890 Other specified postprocedural states; Z88.1 Allergy status to other antibiotic agents; Z88.2 Allergy status to sulfonamides; Z79.82 Long term (current) use of aspirin; Z79.52 Long term (current) use of systemic steroids; Z79.899 Other long term (current) drug therapy
CPT/HCPCS: 36415; 36416; 82805; 85025; 94644; 96365; 96375; J1644; J1815; J7611; J7999

== ENCOUNTER 2021-08-15 06:04 | Inpatient (IN) | payer MEDICARE, MEDICAID ==
[2021-08-15 07:22] LABS: Anion Gap 20 mmol/L (10-20); BUN (Urea Nitrogen) 64 mg/dL (7.0-18.7); Calc. Creatinine Clearance 0 mL/min (70-130); Calcium 8.4 mg/dL (7.8-10.44); Carbon Dioxide 20 mmol/L (22-29); Chloride 85 mmol/L (98-107); Potassium 5.1 mmol/L (3.5-5.1); Sodium 120 mmol/L (136-145)
[2021-08-15 07:32] LABS: Glucose Greater than 800 mg/dL (70-105)
[2021-08-15] MEDS ORDERED: Ondansetron ODT 4 MG TAB PO PRN (08:18)
[2021-08-15] MEDS ORDERED: Sodium Chloride 0.9% 1,000 ML IV PRN ×4 (08:18)
[2021-08-15] MEDS ORDERED: D5 1/2 NS w/20 mEq KCL 1,000 ML IV PRN (08:18)
[2021-08-15] MEDS ORDERED: Bisacodyl 5 MG TAB PO PRN (08:18)
[2021-08-15] MEDS ORDERED: Calcium Carbonate 500 MG ChewTAB PO PRN (08:18)
[2021-08-15] MEDS ORDERED: Electrolyte Replacement Protocol 1 EACH IVPB ONE (08:18)
[2021-08-15] MEDS ORDERED: Dextrose 5 %-0.45 % NaCl 1,000 ML IV PRN (08:18)
[2021-08-15] MEDS ORDERED: Senokot S 8.6-50 MG TAB PO PRN (08:18)
[2021-08-15] MEDS ORDERED: NS 0.9% w/ 20 MEQ KCL 1,000 ML IV PRN ×2 (08:18)
[2021-08-15] MEDS ORDERED: HUMULIN R 100 UNITS in Sodium Chloride 0.9% 100 ML IVPB SCH (08:30)
[2021-08-15 08:56] LABS: BHCG - Serum Negative (NEGATIVE); Pregs Control Background? CLEAR/WHITE (CLR/WHITE); Pregs Control Bar Appear? YES (CONTROL BAR)
[2021-08-15] MEDS ORDERED: Enoxaparin Sodium 30 MG/0.3 ML SYRINGE SC SCH (09:00)
[2021-08-15 09:05] LABS: Hemoglobin A1c 7.2 % (4.0-6.0)
[2021-08-15 09:09] LABS: Anion Gap 20 mmol/L (10-20); BUN (Urea Nitrogen) 64 mg/dL (7.0-18.7); Calc. Creatinine Clearance 18 mL/min (70-130); Calcium 8.6 mg/dL (7.8-10.44); Carbon Dioxide 18 mmol/L (22-29); Chloride 85 mmol/L (98-107); Magnesium 1.8 mg/dL (1.6-2.6); Potassium 4.8 mmol/L (3.5-5.1)
[2021-08-15 09:14] LABS: Sodium 118 mmol/L (136-145)
[2021-08-15 09:21] LABS: Glucose 758 mg/dL (70-105)
[2021-08-15] MEDS: NIFEdipine XL 60 MG TAB PO SCH ×2 (09:51→20:03)
[2021-08-15] MEDS: Tacrolimus 1 MG CAP PO SCH (09:52)
[2021-08-15] MEDS: Famotidine 20 MG TAB PO SCH (09:52)
[2021-08-15] MEDS: Carvedilol 25 MG TAB PO SCH ×2 (09:52→20:04)
[2021-08-15] MEDS: Famotidine/PF 20 mg/2ml Vial SLOW IVP SCH (09:52)
[2021-08-15] MEDS: predniSONE 5 MG TAB PO SCH (09:52)
[2021-08-15 10:24] LABS: Glucose 739 mg/dL (70-105)
[2021-08-15 12:43] LABS: Anion Gap 20 mmol/L (10-20); BUN (Urea Nitrogen) 66 mg/dL (7.0-18.7); Calc. Creatinine Clearance 17 mL/min (70-130); Calcium 8.6 mg/dL (7.8-10.44); Carbon Dioxide 19 mmol/L (22-29); Chloride 85 mmol/L (98-107); Potassium 5.2 mmol/L (3.5-5.1)
[2021-08-15 12:48] LABS: Glucose 698 mg/dL (70-105); Sodium 119 mmol/L (136-145)
[2021-08-15] MEDS: Ondansetron PF 4 MG/2 ML Vial IVP PRN ×2 (12:57→22:03)
[2021-08-15] MEDS: Calcium Acetate 667 MG CAP PO SCH ×2 (13:07→17:55)
[2021-08-15 15:40] LABS: Glucose 441 mg/dL (70-105)
[2021-08-15 16:57] LABS: Anion Gap 22 mmol/L (10-20); BUN (Urea Nitrogen) 65 mg/dL (7.0-18.7); Calc. Creatinine Clearance 17 mL/min (70-130); Calcium 9.1 mg/dL (7.8-10.44); Carbon Dioxide 18 mmol/L (22-29); Chloride 88 mmol/L (98-107); Glucose 333 mg/dL (70-105); Potassium 5.2 mmol/L (3.5-5.1); Sodium 123 mmol/L (136-145)
[2021-08-15] MEDS: Metoclopramide HCl 10 MG TAB PO SCH (20:04)
[2021-08-15] MEDS: Acetaminophen 325 MG TAB PO PRN (20:09)
[2021-08-15 21:16] LABS: SARS-CoV-2 NAA Rapid Test Not Detected (NotDetected)
[2021-08-15 23:07] LABS: Anion Gap 19 mmol/L (10-20); BUN (Urea Nitrogen) 72 mg/dL (7.0-18.7); Calc. Creatinine Clearance 17 mL/min (70-130); Calcium 9.2 mg/dL (7.8-10.44); Carbon Dioxide 24 mmol/L (22-29); Chloride 90 mmol/L (98-107); Glucose 88 mg/dL (70-105); Sodium 128 mmol/L (136-145)
[2021-08-16] MEDS ORDERED: Ondansetron PF 4 MG/2 ML Vial IVP SCH (00:30)
[2021-08-16] MEDS: Dextrose 10% in Water 1,000 ML IV SCH ×2 (00:39→22:58)
[2021-08-16 03:59] LABS: #Lymphocytes 1.8 thou/uL (1.20-3.40); #Monocytes 0.4 thou/uL (0.11-0.59); #Neutrophils 4.1 thou/uL (1.40-6.50); %Basophils 0.1 % (0.0-1.0); %Eosinophils 0.7 % (0.0-10.0); %Lymphocytes 28.4 % (21.0-51.0); %Monocytes 6.7 % (0.0-10.0); Hemoglobin 8.9 g/dL (12.0-16.0); Mean Corpuscular HGB CONC 32.7 g/dL (32.0-36.0); Mean Corpuscular Hemoglobin 29.9 pg (27.0-31.0); Mean Corpuscular Volume 91.6 fL (78.0-98.0); Mean Platelet Volume 7.3 fL (7.4-10.4); Platelet Count 204 thou/uL (130-400); RBC Distribution Width 15.7 % (11.5-14.5); Red Blood Cell (RBC) Count 2.97 mill/uL (4.20-5.40); White Blood Cell (WBC) Count 6.4 thou/uL (4.8-10.8)
[2021-08-16 04:19] LABS: ALT (SGPT) 20 U/L (8-55); AST (SGOT) 16 U/L (5-34); Albumin 3.2 g/dL (3.5-5.0); Alkaline Phosphatase 62 U/L (40-110); Anion Gap 17 mmol/L (10-20); BUN (Urea Nitrogen) 74 mg/dL (7.0-18.7); Bilirubin, Direct 0.2 mg/dL (0.1-0.3); Bilirubin, Total 0.4 mg/dL (0.2-1.2); Calc. Creatinine Clearance 16 mL/min (70-130); Calcium 8.9 mg/dL (7.8-10.44); Carbon Dioxide 24 mmol/L (22-29); Cardiac Risk 2.5 (Less than 4.5); Chloride 90 mmol/L (98-107); Cholesterol 114 mg/dl (< 200 Desired); Glucose 106 mg/dL (70-105); HDL Cholesterol 45 mg/dL (>60 Neg Risk); LDL Cholesterol, Calculated 59 mg/dL; Magnesium 1.9 mg/dL (1.6-2.6); Potassium 4.9 mmol/L (3.5-5.1); Protein, Total 6.5 g/dL (6.0-8.3); Sodium 126 mmol/L (136-145); Triglycerides 48 mg/dL (Less than 150)
[2021-08-16 09:12] LABS: HBSAg Index 0.25 S/CO (0-0.99); Hep B Core Total Ab Non-Reactive (NonReactive); Hep B Core Total Index 0.07 S/CO (0-0.79); Hep B Surf Ag Non-Reactive S/CO (NonReactive); Hep C IgG Ab Non-Reactive (NonReactive); Hep C Index 0.09 S/CO (0-0.79)
[2021-08-16] MEDS: predniSONE 5 MG TAB PO SCH (10:21)
[2021-08-16] MEDS: Carvedilol 25 MG TAB PO SCH ×2 (10:21→22:55)
[2021-08-16] MEDS: NIFEdipine XL 60 MG TAB PO SCH ×2 (10:21→22:56)
[2021-08-16] MEDS: Famotidine 20 MG TAB PO SCH (10:22)
[2021-08-16] MEDS: Metoclopramide HCl 10 MG TAB PO SCH ×3 (10:22→22:55)
[2021-08-16] MEDS: Tacrolimus 1 MG CAP PO SCH (10:22)
[2021-08-16] MEDS: Calcium Acetate 667 MG CAP PO SCH ×3 (10:23→17:10)
[2021-08-16] MEDS: Famotidine/PF 20 mg/2ml Vial SLOW IVP SCH (10:23)
[2021-08-16] MEDS ORDERED: HYDROmorphone 0.5 MG/0.5 ML SYRINGE SLOW IVP SCH (10:30)
[2021-08-16 10:42] LABS: Hep B Surf AB Indeterminate (NonReactive)
[2021-08-16 10:43] LABS: HBSAB Concentration 9.84 mIU/mL
[2021-08-16] MEDS: Acetaminophen 325 MG TAB PO PRN (16:00)
[2021-08-17 00:08] VITALS: BMI 32.9
[2021-08-17] MEDS ORDERED: HYDROcodone/Acetaminophen 5/325 mg Tablet PO SCH (00:45)
[2021-08-17] MEDS ORDERED: HYDROcodone/Acetaminophen 5/325 mg Tablet PO PRN (07:12)
[2021-08-17 07:17] LABS: #Eosinphils 0.1 thou/uL (0.0-0.7); #Lymphocytes 1.7 thou/uL (1.20-3.40); #Monocytes 0.5 thou/uL (0.11-0.59); #Neutrophils 2.9 thou/uL (1.40-6.50); %Basophils 0.7 % (0.0-1.0); %Eosinophils 1.5 % (0.0-10.0); %Lymphocytes 32.5 % (21.0-51.0); %Monocytes 8.7 % (0.0-10.0); %Neutrophils 56.7 % (42.0-75.0); Mean Corpuscular HGB CONC 31.8 g/dL (32.0-36.0); Mean Corpuscular Hemoglobin 29.8 pg (27.0-31.0); Mean Corpuscular Volume 93.8 fL (78.0-98.0); Mean Platelet Volume 7.9 fL (7.4-10.4); Platelet Count 189 thou/uL (130-400); RBC Distribution Width 16.5 % (11.5-14.5); Red Blood Cell (RBC) Count 3.02 mill/uL (4.20-5.40); White Blood Cell (WBC) Count 5.2 thou/uL (4.8-10.8)
[2021-08-17 07:36] LABS: Anion Gap 15 mmol/L (10-20); BUN (Urea Nitrogen) 30 mg/dL (7.0-18.7); Calc. Creatinine Clearance 22 mL/min (70-130); Calcium 8.5 mg/dL (7.8-10.44); Carbon Dioxide 27 mmol/L (22-29); Chloride 97 mmol/L (98-107); Glucose 103 mg/dL (70-105); Magnesium 2.1 mg/dL (1.6-2.6); Potassium 4.8 mmol/L (3.5-5.1); Sodium 134 mmol/L (136-145)
[2021-08-17] MEDS: Calcium Acetate 667 MG CAP PO SCH ×2 (08:19→11:08)
[2021-08-17] MEDS: Metoclopramide HCl 10 MG TAB PO SCH (08:20)
[2021-08-17] MEDS: NIFEdipine XL 60 MG TAB PO SCH (08:20)
[2021-08-17] MEDS: predniSONE 5 MG TAB PO SCH (08:20)
[2021-08-17] MEDS: Carvedilol 25 MG TAB PO SCH (08:20)
[2021-08-17] MEDS: Famotidine 20 MG TAB PO SCH (08:20)
[2021-08-17] MEDS: Famotidine/PF 20 mg/2ml Vial SLOW IVP SCH (08:21)
[2021-08-17] MEDS: Tacrolimus 1 MG CAP PO SCH (08:24)
[2021-08-17 12:05] VITALS: BP 159/76; TEMP 98
== END 2021-08-17 12:11 | disposition home or self-care (01) | DRG 919 ==
LOC: ERS 06:04 → IMCU/EMU 06:43 → T4-B 08-16 19:46
PROVIDERS: ADMIT Student in an Organized Health Care Education/Training Program; ATTEND Internal Medicine
PROC: 5A1D70Z Performance of Urinary Filtration, Intermittent, Less than 6 Hours Per Day (ICD-10-PCS; principal; 2021-08-16)
DX: T85.694A Other mechanical complication of insulin pump, initial encounter (principal); E10.10 Type 1 diabetes mellitus with ketoacidosis without coma; N18.6 End stage renal disease; T86.19 Other complication of kidney transplant; I12.0 Hypertensive chronic kidney disease with stage 5 chronic kidney disease or end stage renal disease; Z94.83 Pancreas transplant status; G43.909 Migraine, unspecified, not intractable, without status migrainosus; E10.43 Type 1 diabetes mellitus with diabetic autonomic (poly)neuropathy; K31.84 Gastroparesis; D63.1 Anemia in chronic kidney disease; E87.6 Hypokalemia; Y83.8 Other surgical procedures as the cause of abnormal reaction of the patient, or of later complication, without mention of misadventure at the time of the procedure; E10.22 Type 1 diabetes mellitus with diabetic chronic kidney disease; Z20.822 Contact with and (suspected) exposure to COVID-19; Z88.1 Allergy status to other antibiotic agents; Z88.2 Allergy status to sulfonamides; Z79.4 Long term (current) use of insulin; Z79.899 Other long term (current) drug therapy; Z79.84 Long term (current) use of oral hypoglycemic drugs; Z99.2 Dependence on renal dialysis
CPT/HCPCS: 36415; 36416; 71045; 80048; 80061; 80076; 83036; 83735; 83930; 84443; 84703; 85025; 86704; 87340; 90935; 93005; 93010; 99285; G0257; J1170; J2405; J7507; J7512; Q0162; S0028

== ENCOUNTER 2022-07-03 16:36 | Inpatient (IN) | payer MEDICARE, MEDICAID ==
[2022-07-03 18:16] LABS: Actual Bicarbonate (HCO3a) 23.3 mEq/L (22-28); Analyzer IN Cardio ER; Base Excess (BEa) 0.5 mEq/L (-2.0 to +3.0); CO2 Tension 31.5 mmHg (35.0-45.0); Calcium, Ionized (arterial) 1.03 mmol/L (1.12-1.30); Carboxyhemoglobin (COHb) 0.3 gm% (0.0-3.0); Hematocrit-ABG 35 % (36.0-47.0); Hemoglobin (Hb) 11.8 g/dL (12.0-16.0); O2 Tension (PaO2), arterial 124.6 mmHg (80.0-100.0); Potassium - ABG Lab 5.15 mmol/L (3.70-5.30); pH, Arterial 7.486 (7.35-7.45)
[2022-07-03 18:22] LABS: Puncture Site RRA
[2022-07-03 18:23] LABS: ALV-art Gradient -14.245 mmHg (0-20)
[2022-07-03] MEDS ORDERED: Acetaminophen 325 MG TAB PO PRN (19:18)
[2022-07-03] MEDS ORDERED: Senokot S 8.6-50 MG TAB PO PRN (19:18)
[2022-07-03 19:19] LABS: Anion Gap 25 mmol/L (10-20); BUN (Urea Nitrogen) 98 mg/dL (7.0-18.7); Calc. Creatinine Clearance 0 mL/min (70-130); Calcium 8.9 mg/dL (7.8-10.44); Carbon Dioxide 23 mmol/L (22-29); Chloride 94 mmol/L (98-107); Estimated GFR 4; Potassium 5.3 mmol/L (3.5-5.1); Sodium 137 mmol/L (136-145)
[2022-07-03] MEDS ORDERED: Dextrose 50% Abboject 50 ML SYRINGE ONE (19:22)
[2022-07-03] MEDS ORDERED: Dextrose 50% Abboject 50 ML SYRINGE SLOW IVP PRN (19:27)
[2022-07-03] MEDS ORDERED: Dextrose 5% in Water 1,000 ML IV PRN (19:27)
[2022-07-03] MEDS ORDERED: Morphine 4 MG/ML VIAL ONE (19:30)
[2022-07-03] MEDS ORDERED: Ondansetron PF 4 MG/2 ML Vial ONE (19:30)
[2022-07-03 20:21] LABS: Glucose 54 mg/dL (70-105)
[2022-07-03] MEDS: Ondansetron ODT 4 MG TAB PO PRN (22:06)
[2022-07-03 22:13] VITALS: BMI 34.3
[2022-07-03] MEDS: Heparin 5,000 UNITS/ML VIAL SC SCH (22:28)
[2022-07-03] MEDS: Carvedilol 25 MG TAB PO SCH (22:28)
[2022-07-03] MEDS: NIFEdipine XL 60 MG TAB PO SCH (22:28)
[2022-07-03] MEDS ORDERED: HYDROcodone/Acetaminophen 5/325 mg Tablet PO PRN (22:45)
[2022-07-03] MEDS ORDERED: Morphine 2 MG/ML VIAL SLOW IVP PRN (23:23)
[2022-07-03] MEDS: Promethazine HCl 12.5 MG in Sodium Chloride 0.9% 50 ML IVPB PRN (23:50)
[2022-07-04] MEDS ORDERED: hydrALAZINE 20 MG/ML VIAL SLOW IVP PRN (00:25)
[2022-07-04 01:24] LABS: Anion Gap 24 mmol/L (10-20); BUN (Urea Nitrogen) 104 mg/dL (7.0-18.7); Calc. Creatinine Clearance 11 mL/min (70-130); Calcium 8.4 mg/dL (7.8-10.44); Carbon Dioxide 27 mmol/L (22-29); Chloride 90 mmol/L (98-107); Estimated GFR 4; Glucose 76 mg/dL (70-105); Sodium 134 mmol/L (136-145)
[2022-07-04 01:44] LABS: Actual Bicarbonate (HCO3a) 27.5 mEq/L (22-28); Base Excess (BEa) 2.4 mEq/L (-2.0 to +3.0); CO2 Tension 44.9 mmHg (35.0-45.0); Calcium, Ionized (arterial) 0.96 mmol/L (1.12-1.30); Carboxyhemoglobin (COHb) 1.3 gm% (0.0-3.0); Hematocrit-ABG 33 % (36.0-47.0); Hemoglobin (Hb) 11.2 g/dL (12.0-16.0); O2 Tension (PaO2), arterial 95.3 mmHg (80.0-100.0); pH, Arterial 7.405 (7.35-7.45)
[2022-07-04 01:46] LABS: ALV-art Gradient -1.695 mmHg (0-20); Potassium - ABG Lab 7.01 mmol/L (3.70-5.30); Puncture Site RRA
[2022-07-04] MEDS ORDERED: Calcium Gluc 4.6 MEQ/10 ML (100 MG/ML) SLOW IVP SCH (02:15)
[2022-07-04] MEDS: Ondansetron ODT 4 MG TAB PO PRN (03:53)
[2022-07-04] MEDS ORDERED: Linaclotide [Linzess] 145 MCG Capsule PO SCH (07:30)
[2022-07-04 08:01] LABS: #Eosinphils 0.1 thou/uL (0.0-0.7); #Monocytes 0.4 thou/uL (0.11-0.59); %Basophils 0.2 % (0.0-1.0); %Eosinophils 1.4 % (0.0-10.0); %Monocytes 7.4 % (0.0-10.0); %Neutrophils 71.8 % (42.0-75.0); Hemoglobin 11.5 g/dL (12.0-16.0); Mean Corpuscular HGB CONC 32.2 g/dL (32.0-36.0); Mean Corpuscular Hemoglobin 30.3 pg (27.0-31.0); Mean Corpuscular Volume 94.2 fl (78.0-98.0); Platelet Count 199 10x3/uL (130-400); RBC Distribution Width 14.9 % (11.5-14.5); Red Blood Cell (RBC) Count 3.79 mill/uL (4.20-5.40); White Blood Cell (WBC) Count 5.5 10x3/uL (4.8-10.8)
[2022-07-04 08:33] LABS: ALT (SGPT) 9 U/L (8-55); AST (SGOT) 14 U/L (5-34); Albumin 3.9 g/dL (3.5-5.0); Alkaline Phosphatase 62 U/L (40-110); Anion Gap 17 mmol/L (10-20); BUN (Urea Nitrogen) 23 mg/dL (7.0-18.7); Bilirubin, Total 0.5 mg/dL (0.2-1.2); Calc. Creatinine Clearance 34 mL/min (70-130); Calcium 9.3 mg/dL (7.8-10.44); Carbon Dioxide 26 mmol/L (22-29); Chloride 98 mmol/L (98-107); Estimated GFR 17; Globulin 3.9 g/dL (2.4-3.5); Glucose 166 mg/dL (70-105); Potassium 3.4 mmol/L (3.5-5.1); Protein, Total 7.8 g/dL (6.0-8.3); Sodium 138 mmol/L (136-145)
[2022-07-04] MEDS ORDERED: Tacrolimus 1 MG CAP PO SCH (09:00)
[2022-07-04] MEDS ORDERED: predniSONE 5 MG TAB PO SCH (09:00)
[2022-07-04] MEDS: HumaLOG 300 UNITS/3 ML VIAL SC PRN ×2 (09:13→12:18)
[2022-07-04] MEDS: Promethazine HCl 12.5 MG in Sodium Chloride 0.9% 50 ML IVPB PRN (09:13)
[2022-07-04] MEDS: Carvedilol 25 MG TAB PO SCH (09:15)
[2022-07-04] MEDS: NIFEdipine XL 60 MG TAB PO SCH (09:15)
[2022-07-04] MEDS: Heparin 5,000 UNITS/ML VIAL SC SCH ×2 (09:16→14:35)
[2022-07-04 09:17] VITALS: BP 127/54
[2022-07-04 17:24] VITALS: TEMP 98.6
== END 2022-07-04 17:55 | disposition home or self-care (01) | DRG 637 ==
LOC: ERS 16:36 → IMCU/EMU 19:12
PROVIDERS: ADMIT Student in an Organized Health Care Education/Training Program; ATTEND Internal Medicine
PROC: 5A1D70Z Performance of Urinary Filtration, Intermittent, Less than 6 Hours Per Day (ICD-10-PCS; principal; 2022-07-03)
DX: E10.10 Type 1 diabetes mellitus with ketoacidosis without coma (principal); N18.6 End stage renal disease; T86.12 Kidney transplant failure; Z94.83 Pancreas transplant status; I12.0 Hypertensive chronic kidney disease with stage 5 chronic kidney disease or end stage renal disease; E10.22 Type 1 diabetes mellitus with diabetic chronic kidney disease; E10.43 Type 1 diabetes mellitus with diabetic autonomic (poly)neuropathy; E78.2 Mixed hyperlipidemia; E66.01 Morbid (severe) obesity due to excess calories; E87.5 Hyperkalemia; Z88.1 Allergy status to other antibiotic agents; Z88.2 Allergy status to sulfonamides; Z68.34 Body mass index [BMI] 34.0-34.9, adult; Z79.52 Long term (current) use of systemic steroids
CPT/HCPCS: 36416; 36600; 80053; 82010; 82805; 83690; 85025; 90935; 93005; 93010; 96374; 96375; G0257; J0360; J0612; J1644; J1815; J2270; J2272; J2405; J2550; J7507; J7512; J7999; Q0162

== ENCOUNTER 2022-08-14 04:23 | Observation (INO) | payer MEDICARE, MEDICAID ==
[2022-08-14] MEDS ORDERED: HumaLOG 300 UNITS/3 ML VIAL SC PRN ×2 (05:30)
[2022-08-14] MEDS ORDERED: Dextrose 50% Abboject 50 ML SYRINGE SLOW IVP PRN (05:30)
[2022-08-14] MEDS ORDERED: Glucagon 1 MG/ML KIT IM PRN (05:30)
[2022-08-14] MEDS ORDERED: Dextrose 5% in Water 1,000 ML IV PRN (05:30)
[2022-08-14 06:04] LABS: #Eosinphils 0.1 thou/uL (0.0-0.7); #Monocytes 0.3 thou/uL (0.11-0.59); #Neutrophils 5.3 thou/uL (1.40-6.50); %Basophils 0.3 % (0.0-1.0); %Eosinophils 1.4 % (0.0-10.0); %Lymphocytes 18.5 % (21.0-51.0); %Neutrophils 75.5 % (42.0-75.0); Mean Corpuscular HGB CONC 32.7 g/dL (32.0-36.0); Mean Corpuscular Hemoglobin 30.8 pg (27.0-31.0); Mean Corpuscular Volume 94.2 fl (78.0-98.0); Mean Platelet Volume 10.5 fL (7.4-10.4); Platelet Count 240 10x3/uL (130-400); RBC Distribution Width 14.9 % (11.5-14.5)
[2022-08-14 06:22] LABS: Anion Gap 24 mmol/L (10-20); BUN (Urea Nitrogen) 84 mg/dL (7.0-18.7); Calc. Creatinine Clearance 14 mL/min (70-130); Calcium 8.5 mg/dL (7.8-10.44); Carbon Dioxide 19 mmol/L (22-29); Chloride 95 mmol/L (98-107); Estimated GFR 5; Glucose 88 mg/dL (70-105); Sodium 131 mmol/L (136-145)
[2022-08-14 06:28] LABS: Critical Call Chemistry NUR.TM8@0628; Potassium 6.7 mmol/L (3.5-5.1)
[2022-08-14 06:30] LABS: Iron 104 ug/dL (50-170); Iron Binding Capacity, Total 205 mcg/dL (265-497)
[2022-08-14] MEDS ORDERED: Insulin Regular 300 UNITS/3 ML VIAL IVP SCH (06:45)
[2022-08-14] MEDS: Dextrose 50% Abboject 50 ML SYRINGE SLOW IVP PRN ×2 (06:52→08:12)
[2022-08-14] MEDS ORDERED: Heparin 10,000 UNITS/ 10 ML VIAL ONE (07:40)
[2022-08-14] MEDS ORDERED: Acetaminophen 325 MG TAB PO PRN (07:57)
[2022-08-14] MEDS ORDERED: Ondansetron PF 4 MG/2 ML Vial IVP PRN (07:57)
[2022-08-14] MEDS ORDERED: HYDROcodone/Acetaminophen 5/325 mg Tablet PO PRN (07:57)
[2022-08-14] MEDS ORDERED: NIFEdipine XL 60 MG TAB PO SCH (09:00)
[2022-08-14] MEDS ORDERED: NIFEdipine XL 30 MG TAB PO SCH (09:00)
[2022-08-14] MEDS: Carvedilol 25 MG TAB PO SCH ×2 (14:32→14:35)
[2022-08-14] MEDS: Aspirin 81 mg Enteric Coated Tablet PO SCH (14:34)
[2022-08-14] MEDS: Tacrolimus 1 MG CAP PO SCH (14:34)
[2022-08-14] MEDS: Famotidine 20 MG TAB PO SCH (14:35)
[2022-08-14] MEDS: predniSONE 5 MG TAB PO SCH (14:35)
[2022-08-14] MEDS ORDERED: hydrALAZINE 20 MG/ML VIAL SLOW IVP PRN (16:21)
[2022-08-14 17:17] LABS: Anion Gap 19 mmol/L (10-20); BUN (Urea Nitrogen) 21 mg/dL (7.0-18.7); Calc. Creatinine Clearance 36 mL/min (70-130); Calcium 9.1 mg/dL (7.8-10.44); Carbon Dioxide 24 mmol/L (22-29); Chloride 96 mmol/L (98-107); Estimated GFR 17; Glucose 250 mg/dL (70-105); Potassium 3.8 mmol/L (3.5-5.1); Sodium 135 mmol/L (136-145)
[2022-08-14] MEDS: hydrALAZINE 25 MG TAB PO SCH (20:08)
[2022-08-14] MEDS: NIFEdipine XL 60 MG TAB PO SCH (22:07)
[2022-08-15 05:08] LABS: #Eosinphils 0.1 thou/uL (0.0-0.7); #Monocytes 0.5 thou/uL (0.11-0.59); #Neutrophils 5.1 thou/uL (1.40-6.50); %Basophils 0.3 % (0.0-1.0); %Eosinophils 1.2 % (0.0-10.0); %Lymphocytes 22.6 % (21.0-51.0); %Monocytes 6.4 % (0.0-10.0); %Neutrophils 69.2 % (42.0-75.0); Hemoglobin 7.5 g/dL (12.0-16.0); Mean Corpuscular HGB CONC 32.9 g/dL (32.0-36.0); Mean Corpuscular Hemoglobin 30.6 pg (27.0-31.0); Mean Corpuscular Volume 93.1 fl (78.0-98.0); Mean Platelet Volume 10.9 fL (7.4-10.4); Platelet Count 211 10x3/uL (130-400); RBC Distribution Width 14.9 % (11.5-14.5); Red Blood Cell (RBC) Count 2.45 mill/uL (4.20-5.40); White Blood Cell (WBC) Count 7.3 10x3/uL (4.8-10.8)
[2022-08-15 05:49] LABS: Anion Gap 15 mmol/L (10-20); BUN (Urea Nitrogen) 35 mg/dL (7.0-18.7); Calc. Creatinine Clearance 23 mL/min (70-130); Calcium 8.6 mg/dL (7.8-10.44); Carbon Dioxide 26 mmol/L (22-29); Chloride 97 mmol/L (98-107); Estimated GFR 10; Glucose 104 mg/dL (70-105); Potassium 4.4 mmol/L (3.5-5.1); Sodium 134 mmol/L (136-145)
[2022-08-15 09:02] VITALS: BMI 36.1
[2022-08-15] MEDS ORDERED: Heparin 10,000 UNITS/ 10 ML VIAL ONE (09:05)
[2022-08-15] MEDS: Carvedilol 25 MG TAB PO SCH ×2 (13:58→14:09)
[2022-08-15] MEDS: hydrALAZINE 25 MG TAB PO SCH ×2 (13:59→14:08)
[2022-08-15] MEDS: Famotidine 20 MG TAB PO SCH (14:08)
[2022-08-15] MEDS: predniSONE 5 MG TAB PO SCH (14:09)
[2022-08-15] MEDS: Tacrolimus 1 MG CAP PO SCH (14:09)
[2022-08-15] MEDS: NIFEdipine XL 60 MG TAB PO SCH (14:09)
[2022-08-15 14:10] VITALS: BP 179/84; TEMP 99
[2022-08-15] MEDS: Aspirin 81 mg Enteric Coated Tablet PO SCH (14:10)
== END 2022-08-15 15:30 | disposition home or self-care (01) ==
LOC: 2SW 05:34
PROVIDERS: ADMIT Student in an Organized Health Care Education/Training Program; ATTEND Internal Medicine
DX: E87.20 Acidosis, unspecified (principal); E87.5 Hyperkalemia; E87.1 Hypo-osmolality and hyponatremia; E10.9 Type 1 diabetes mellitus without complications; I12.0 Hypertensive chronic kidney disease with stage 5 chronic kidney disease or end stage renal disease; N18.6 End stage renal disease; M62.838 Other muscle spasm; E78.5 Hyperlipidemia, unspecified; Z99.2 Dependence on renal dialysis; Z88.2 Allergy status to sulfonamides; Z79.82 Long term (current) use of aspirin; Z79.899 Other long term (current) drug therapy
CPT/HCPCS: 80048 ×2; 82728; 82962 ×2; 83540; 83550; 85025 ×2; 96374; 96375; 96376; G0378 ×2; J0360; 36415; 36416; 90935; G0257; J1644; J1815; J7507; J7512; J7999

== ENCOUNTER 2023-01-01 23:03 | Observation (INO) | payer MEDICARE, MEDICAID ==
[2023-01-01] MEDS ORDERED: CALCIUM GLUC 1 GM/NS 50 ML BAG ONE (23:13)
[2023-01-01] MEDS ORDERED: Dextrose 10% in Water 250 ML ONE (23:15)
[2023-01-02 00:27] LABS: Albumin 3.8 g/dL (3.5-5.0)
[2023-01-02 00:29] LABS: Calcium 9.2 mg/dL (7.8-10.44); Globulin 3.6 g/dL (2.4-3.5); Protein, Total 7.4 g/dL (6.0-8.3)
[2023-01-02] MEDS ORDERED: LOKELMA 10 GM PACKET PO SCH (00:30)
[2023-01-02 00:31] LABS: Bilirubin, Total 0.4 mg/dL (0.2-1.2); Carbon Dioxide 13 mmol/L (22-29)
[2023-01-02 00:32] LABS: Alkaline Phosphatase 73 U/L (40-110)
[2023-01-02 00:33] LABS: BUN (Urea Nitrogen) 66 mg/dL (7.0-18.7); Calc. Creatinine Clearance 0 mL/min (70-130); Estimated GFR 6
[2023-01-02 00:34] LABS: AST (SGOT) 29 U/L (5-34)
[2023-01-02 00:35] LABS: ALT (SGPT) 10 U/L (8-55)
[2023-01-02 00:39] LABS: Glucose 46 mg/dL (70-105)
[2023-01-02] MEDS ORDERED: Glucagon 1 MG/ML KIT IM PRN (01:00)
[2023-01-02] MEDS ORDERED: Dextrose 50% Abboject 50 ML SYRINGE SLOW IVP PRN (01:00)
[2023-01-02] MEDS ORDERED: Dextrose 5% in Water 1,000 ML IV PRN (01:00)
[2023-01-02] MEDS ORDERED: HumaLOG 300 UNITS/3 ML VIAL SC PRN (01:00)
[2023-01-02] MEDS ORDERED: Acetaminophen 325 MG TAB PO PRN (01:01)
[2023-01-02] MEDS ORDERED: Ondansetron PF 4 MG/2 ML Vial IVP PRN (01:01)
[2023-01-02 01:09] LABS: Anion Gap 29 mmol/L (10-20); Chloride 99 mmol/L (98-107); Sodium 133 mmol/L (136-145)
[2023-01-02 01:13] LABS: Potassium 6.3 mmol/L (3.5-5.1)
[2023-01-02 01:54] LABS: #Eosinphils 0.1 thou/uL (0.0-0.7); #Monocytes 0.5 thou/uL (0.11-0.59); #Neutrophils 2.4 thou/uL (1.40-6.50); %Basophils 0.2 % (0.0-1.0); %Eosinophils 2.5 % (0.0-10.0); %Lymphocytes 30.8 % (21.0-51.0); %Monocytes 11.2 % (0.0-10.0); %Neutrophils 55.1 % (42.0-75.0); Hematocrit 32.5 % (36.0-47.0); Hemoglobin 10.4 g/dL (12.0-16.0); Mean Platelet Volume 10.4 fL (7.4-10.4); Platelet Count 175 10x3/uL (130-400); RBC Distribution Width 15.7 % (11.5-14.5); Red Blood Cell (RBC) Count 3.35 mill/uL (4.20-5.40); White Blood Cell (WBC) Count 4.4 10x3/uL (4.8-10.8)
[2023-01-02 02:18] LABS: Anion Gap 22 mmol/L (10-20); BUN (Urea Nitrogen) 69 mg/dL (7.0-18.7); Calc. Creatinine Clearance 0 mL/min (70-130); Calcium 8.7 mg/dL (7.8-10.44); Carbon Dioxide 21 mmol/L (22-29); Chloride 92 mmol/L (98-107); Estimated GFR 5; Glucose 233 mg/dL (70-105); Magnesium 2.3 mg/dL (1.6-2.6); Potassium 5.9 mmol/L (3.5-5.1); Sodium 129 mmol/L (136-145)
[2023-01-02 04:56] VITALS: BMI 34.5
[2023-01-02] MEDS ORDERED: Carvedilol 25 MG TAB ONE ×2 (05:08→10:34)
[2023-01-02] MEDS ORDERED: Carvedilol 25 MG TAB PO SCH ×2 (05:15→20:00)
[2023-01-02] MEDS ORDERED: Acetaminophen 325 MG TAB ONE (05:46)
[2023-01-02] MEDS: NIFEdipine XL 60 MG ER.TAB PO SCH (10:47)
[2023-01-02] MEDS ORDERED: Labetalol HCl 100 MG/20 ML VIAL SLOW IVP PRN (14:13)
[2023-01-02] MEDS: Insulin Glargine 30 UNITS/0.3 ML VIAL SC SCH (14:22)
[2023-01-02] MEDS: HumaLOG 300 UNITS/3 ML VIAL SC PRN ×2 (14:23→18:39)
[2023-01-02] MEDS: Heparin 5,000 UNITS/ML VIAL SC SCH ×2 (14:25→20:31)
[2023-01-02] MEDS ORDERED: Oseltamivir 6 MG/ML ORAL SUSP PO SCH (17:00)
[2023-01-03] MEDS ORDERED: Carvedilol 25 MG TAB PO SCH (08:00)
[2023-01-03] MEDS ORDERED: predniSONE 5 MG TAB PO SCH (08:00)
[2023-01-03 08:18] VITALS: BP 181/77; TEMP 98.2
[2023-01-03] MEDS: NIFEdipine XL 60 MG ER.TAB PO SCH (08:21)
[2023-01-03] MEDS: Insulin Glargine 30 UNITS/0.3 ML VIAL SC SCH (08:21)
[2023-01-03] MEDS: Heparin 5,000 UNITS/ML VIAL SC SCH (08:21)
[2023-01-03 08:58] LABS: AST (SGOT) 15 U/L (5-34); Albumin 3.8 g/dL (3.5-5.0); Alkaline Phosphatase 55 U/L (40-110); Anion Gap 19 mmol/L (10-20); BUN (Urea Nitrogen) 38 mg/dL (7.0-18.7); Bilirubin, Total 0.5 mg/dL (0.2-1.2); Calc. Creatinine Clearance 20 mL/min (70-130); Calcium 8.8 mg/dL (7.8-10.44); Carbon Dioxide 26 mmol/L (22-29); Chloride 95 mmol/L (98-107); Estimated GFR 9; Globulin 3.5 g/dL (2.4-3.5); Glucose 133 mg/dL (70-105); Potassium 5.3 mmol/L (3.5-5.1); Protein, Total 7.3 g/dL (6.0-8.3); Sodium 135 mmol/L (136-145)
[2023-01-03 08:59] LABS: ALT (SGPT) 10 U/L (8-55)
[2023-01-03] MEDS ORDERED: Tacrolimus 1 MG CAP PO SCH (09:00)
[2023-01-03] MEDS ORDERED: Aspirin 81 mg Enteric Coated Tablet PO SCH (09:00)
[2023-01-03] MEDS ORDERED: Heparin 10,000 UNITS/ 10 ML VIAL ONE (10:00)
== END 2023-01-03 10:22 | disposition home or self-care (01) ==
LOC: ERS 23:03 → 2SW 01-02 00:57 → ERHOLD 01-02 01:16 → 2SW 01-02 13:09
PROVIDERS: ADMIT Internal Medicine; ATTEND Nurse Practitioner Acute Care
DX: E87.5 Hyperkalemia (principal); I12.0 Hypertensive chronic kidney disease with stage 5 chronic kidney disease or end stage renal disease; N18.6 End stage renal disease; Z99.2 Dependence on renal dialysis; E87.20 Acidosis, unspecified; J10.1 Influenza due to other identified influenza virus with other respiratory manifestations; E10.649 Type 1 diabetes mellitus with hypoglycemia without coma; Z88.2 Allergy status to sulfonamides; Z79.82 Long term (current) use of aspirin; Z79.899 Other long term (current) drug therapy; Z79.4 Long term (current) use of insulin
CPT/HCPCS: 80048; 80053 ×2; 82962; 83735; 85025; 93005; 96365; 96372 ×2; 96375; 99285; G0378 ×3; J0613; 36415; 36416; 90935; G0257; J1644; J1815; J7507; J7512

== ENCOUNTER 2023-12-06 06:20 | Inpatient (IN) | payer MEDICARE, MEDICAID ==
[2023-12-06] MEDS ORDERED: Glucagon 1 MG/ML KIT IM PRN ×2 (08:30→10:15)
[2023-12-06] MEDS ORDERED: Acetaminophen 325 MG TAB PO PRN (08:30)
[2023-12-06] MEDS ORDERED: traMADol HCl 50 MG TAB PO PRN (08:30)
[2023-12-06 09:13] VITALS: BMI 35.5
[2023-12-06] MEDS: Morphine 4 MG/ML VIAL SLOW IVP PRN (09:31)
[2023-12-06] MEDS ORDERED: Insulin Lispro 100 UNIT/ML 10 ML VIAL SC PRN (09:36)
[2023-12-06] MEDS ORDERED: Dextrose 5% in Water 1,000 ML IV PRN (10:15)
[2023-12-06] MEDS ORDERED: Dextrose 50% Abboject 50 ML SYRINGE SLOW IVP PRN (10:15)
[2023-12-06 13:38] LABS: Hep B Core Total Index 0.16 S/CO (0-0.79); Hep C Index 0.06 S/CO (0-0.79)
[2023-12-06] MEDS: TETANUS, DIPHTHERIA TOX,ADULT (TDVAX) 0.5 ML VIAL IM ONE (13:49)
[2023-12-06 13:58] LABS: HBsAg Index 0.31 S/CO (0-0.99); Hep B Core Total Ab NONREACTIVE (NonReactive); Hep B Surf AB REACTIVE (NonReactive); Hep B Surf Ag NONREACTIVE S/CO (NonReactive); Hep C IgG Ab NONREACTIVE S/CO (NonReactive)
[2023-12-06] MEDS: HYDROcodone/Acetaminophen 10/325 mg Tablet PO PRN (17:26)
[2023-12-06] MEDS: hydrALAZINE 20 MG/ML VIAL SLOW IVP PRN (17:43)
[2023-12-06] MEDS: NIFEdipine XL 60 MG ER.TAB PO SCH (20:16)
[2023-12-06] MEDS: Ondansetron PF 4 MG/2 ML Vial IVP PRN (21:34)
[2023-12-06] MEDS: Dextrose 5% in Water 1,000 ML IV PRN (22:05)
[2023-12-06] MEDS: Dextrose 50% Abboject 50 ML SYRINGE SLOW IVP PRN (22:40)
[2023-12-07] MEDS: Promethazine HCl 25 MG/ML VIAL IM PRN (01:09)
[2023-12-07 04:59] LABS: #Basophils Less than 0.03 10x3/uL (0.0-0.2); %Basophils 0.2 % (0.0-1.0); %Eosinophils 3.7 % (0.0-10.0); %Lymphocytes 17.6 % (21.0-51.0); %Monocytes 10.6 % (0.0-10.0); %Neutrophils 67.7 % (42.0-75.0); Hematocrit 44.5 % (36.0-47.0); Mean Corpuscular HGB CONC 31.5 g/dL (32.0-36.0); Mean Corpuscular Hemoglobin 31.3 pg (27.0-31.0); Mean Corpuscular Volume 99.3 fL (78.0-98.0); Mean Platelet Volume 10.1 fL (7.4-10.4); Platelet Count 167 10x3/uL (130-400); RBC Distribution Width 14.8 % (11.5-14.5); Red Blood Cell (RBC) Count 4.48 mill/uL (4.20-5.40)
[2023-12-07 05:24] LABS: Anion Gap 16 mmol/L (10-20); BUN (Urea Nitrogen) 35 mg/dL (7.0-18.7); Calc. Creatinine Clearance 19 mL/min (70-130); Calcium 8.8 mg/dL (7.8-10.44); Carbon Dioxide 29 mmol/L (22-29); Chloride 95 mmol/L (98-107); Estimated GFR 8; Glucose 103 mg/dL (70-105); Sodium 134 mmol/L (136-145)
[2023-12-07] MEDS: LOKELMA 10 GM PACKET PO SCH ×2 (08:46→21:11)
[2023-12-07] MEDS: Pantoprazole DR 40 MG TAB PO SCH (08:49)
[2023-12-07] MEDS: predniSONE 5 MG TAB PO SCH (08:49)
[2023-12-07] MEDS: Calcium Gluc 4.6 MEQ/10 ML (100 MG/ML) SLOW IVP SCH (10:17)
[2023-12-07] MEDS: Dextrose 50% Abboject 50 ML SYRINGE SLOW IVP SCH ×2 (10:17→21:26)
[2023-12-07] MEDS: Insulin Regular, Human 100 UNIT/ML 10 ML VIAL IVP SCH ×2 (10:17→21:46)
[2023-12-07 11:04] LABS: Anion Gap 19 mmol/L (10-20); BUN (Urea Nitrogen) 38 mg/dL (7.0-18.7); Calc. Creatinine Clearance 17 mL/min (70-130); Calcium 9.2 mg/dL (7.8-10.44); Carbon Dioxide 28 mmol/L (22-29); Chloride 92 mmol/L (98-107); Estimated GFR 7; Glucose 217 mg/dL (70-105); Potassium 5.6 mmol/L (3.5-5.1); Sodium 133 mmol/L (136-145)
[2023-12-07] MEDS ORDERED: Dextrose 50% Abboject 50 ML SYRINGE ONE ×4 (12:10→13:21)
[2023-12-07] MEDS ORDERED: Lidocaine 1% PF 5 ML VIAL ONE (12:22)
[2023-12-07] MEDS ORDERED: PROPOFOL 20 ML ONE (12:22)
[2023-12-07] MEDS ORDERED: Dexamethasone 20 MG/5 ML VIAL ONE (12:22)
[2023-12-07] MEDS ORDERED: Ondansetron PF 4 MG/2 ML Vial ONE ×2 (12:22→14:58)
[2023-12-07] MEDS ORDERED: fentaNYL PF 100 MCG/2 ML SYRINGE ONE (12:22)
[2023-12-07] MEDS ORDERED: Midazolam HCl 2 mg/2 ml Vial ONE (12:22)
[2023-12-07] MEDS ORDERED: CEFAZOLIN 2 GM VIAL ONE (13:02)
[2023-12-07] MEDS ORDERED: PHENYLEPHRINE-NS 100 MCG/ML 10 ML SYRINGE ONE (14:02)
[2023-12-07] MEDS ORDERED: fentaNYL 50 mcg/mL 1 mL Vial ONE ×2 (14:58→15:09)
[2023-12-07] MEDS ORDERED: Morphine 4 MG/ML VIAL ONE (15:17)
[2023-12-07] MEDS ORDERED: Morphine 2 MG/ML VIAL ONE ×2 (15:32→15:48)
[2023-12-07] MEDS ORDERED: HYDROmorphone 0.5 MG/0.5 ML SYRINGE ONE ×2 (16:03→16:41)
[2023-12-07 16:51] LABS: Potassium 6.7 mmol/L (3.5-5.1)
[2023-12-07] MEDS ORDERED: Promethazine HCl 25 MG/ML VIAL ONE (17:05)
[2023-12-07] MEDS: Albuterol 2.5 MG (3 mL) NEB NEB SCH (18:45)
[2023-12-07] MEDS: Sodium Bicarb 50 MEQ/50 ML Abboject 8.4% SYRINGE IVP SCH (21:17)
[2023-12-07] MEDS: Calcium Chloride 1 GM/10 ML Abboject SYRINGE IVP SCH (21:53)
[2023-12-07] MEDS: CEFAZOLIN 2 GM in Sodium Chloride 0.9% 100 ML IVPB SCH (23:10)
[2023-12-07] MEDS: Carvedilol 25 MG TAB PO SCH (23:10)
[2023-12-08 01:03] LABS: Chloride 92 mmol/L (98-107); Potassium 5.6 mmol/L (3.5-5.1); Sodium 135 mmol/L (136-145)
[2023-12-08 01:04] LABS: Calcium 10.4 mg/dL (7.8-10.44); Glucose 63 mg/dL (70-105)
[2023-12-08 01:06] LABS: Anion Gap 23 mmol/L (10-20); Carbon Dioxide 26 mmol/L (22-29)
[2023-12-08 01:08] LABS: BUN (Urea Nitrogen) 48 mg/dL (7.0-18.7); Calc. Creatinine Clearance 15 mL/min (70-130); Estimated GFR 6
[2023-12-08] MEDS: Pantoprazole 40 MG VIAL IVP SCH (04:29)
[2023-12-08 04:33] LABS: #Basophils Less than 0.03 10x3/uL (0.0-0.2); #Eosinophils Less than 0.03 10x3/uL (0.0-0.7); %Lymphocytes 7.7 % (21.0-51.0); %Monocytes 6.9 % (0.0-10.0); %Neutrophils 85.2 % (42.0-75.0); Hemoglobin 12.9 g/dL (12.0-16.0); Mean Corpuscular HGB CONC 33.1 g/dL (32.0-36.0); Mean Corpuscular Hemoglobin 31.2 pg (27.0-31.0); Mean Corpuscular Volume 94.2 fL (78.0-98.0); Mean Platelet Volume 10.5 fL (7.4-10.4); Platelet Count 154 10x3/uL (130-400); RBC Distribution Width 14.4 % (11.5-14.5); Red Blood Cell (RBC) Count 4.14 mill/uL (4.20-5.40)
[2023-12-08 04:53] LABS: Anion Gap 23 mmol/L (10-20); BUN (Urea Nitrogen) 49 mg/dL (7.0-18.7); Calc. Creatinine Clearance 14 mL/min (70-130); Calcium 9.7 mg/dL (7.8-10.44); Carbon Dioxide 21 mmol/L (22-29); Chloride 93 mmol/L (98-107); Estimated GFR 5; Glucose 173 mg/dL (70-105); Potassium 6.4 mmol/L (3.5-5.1); Sodium 131 mmol/L (136-145)
[2023-12-08] MEDS: Sodium Bicarb 50 mEq/50 ML VIAL IVP SCH (05:40)
[2023-12-08] MEDS: Insulin Regular, Human 100 UNIT/ML 10 ML VIAL IVP SCH (05:52)
[2023-12-08 07:28] LABS: Anion Gap 21 mmol/L (10-20); BUN (Urea Nitrogen) 53 mg/dL (7.0-18.7); Calc. Creatinine Clearance 14 mL/min (70-130); Calcium 9.7 mg/dL (7.8-10.44); Carbon Dioxide 27 mmol/L (22-29); Chloride 92 mmol/L (98-107); Estimated GFR 6; Glucose 97 mg/dL (70-105); Potassium 4.7 mmol/L (3.5-5.1); Sodium 135 mmol/L (136-145)
[2023-12-08] MEDS: CEFAZOLIN 2 GM in Sodium Chloride 0.9% 100 ML IVPB SCH (08:07)
[2023-12-08] MEDS: Polyethylene Glycol 3350 17 GM Packet PO SCH (14:26)
[2023-12-08] MEDS: Senokot S 8.6-50 MG TAB PO SCH (14:27)
[2023-12-09 08:31] LABS: Anion Gap 16 mmol/L (10-20); BUN (Urea Nitrogen) 35 mg/dL (7.0-18.7); Calc. Creatinine Clearance 18 mL/min (70-130); Calcium 8.5 mg/dL (7.8-10.44); Carbon Dioxide 28 mmol/L (22-29); Chloride 96 mmol/L (98-107); Estimated GFR 7; Glucose 134 mg/dL (70-105); Potassium 5.1 mmol/L (3.5-5.1); Sodium 135 mmol/L (136-145)
[2023-12-09] MEDS: Pantoprazole 40 MG VIAL IVP SCH (09:11)
[2023-12-10] MEDS ORDERED: traMADol HCl 50 MG TAB PO PRN (04:38)
[2023-12-10 05:48] LABS: Anion Gap 21 mmol/L (10-20); BUN (Urea Nitrogen) 56 mg/dL (7.0-18.7); Calc. Creatinine Clearance 14 mL/min (70-130); Calcium 8.2 mg/dL (7.8-10.44); Carbon Dioxide 25 mmol/L (22-29); Chloride 94 mmol/L (98-107); Estimated GFR 6; Glucose 130 mg/dL (70-105); Potassium 6.1 mmol/L (3.5-5.1); Sodium 134 mmol/L (136-145)
[2023-12-10] MEDS: Acetaminophen 500 MG TAB PO SCH (06:39)
[2023-12-10] MEDS: traMADol HCl 50 MG TAB PO SCH (06:40)
[2023-12-10] MEDS: Acetaminophen 325 MG TAB PO SCH (06:41)
[2023-12-10] MEDS: Sodium Polystyrene Sulfonate 15 GM (60 mL) BOT PO SCH (08:48)
[2023-12-10] MEDS: Dextrose 50% Abboject 50 ML SYRINGE SLOW IVP SCH ×2 (09:18→11:14)
[2023-12-10] MEDS: Insulin Regular, Human 100 UNIT/ML 10 ML VIAL IVP SCH (09:18)
[2023-12-10] MEDS: Albuterol 2.5 MG (3 mL) NEB NEB SCH (09:32)
[2023-12-10 13:44] LABS: Anion Gap 20 mmol/L (10-20); BUN (Urea Nitrogen) 60 mg/dL (7.0-18.7); Calc. Creatinine Clearance 14 mL/min (70-130); Carbon Dioxide 23 mmol/L (22-29); Chloride 93 mmol/L (98-107); Estimated GFR 5; Glucose 261 mg/dL (70-105); Potassium 5.3 mmol/L (3.5-5.1); Sodium 131 mmol/L (136-145)
[2023-12-10] MEDS: HYDROcodone/Acetaminophen 10/325 mg Tablet PO PRN ×2 (15:31→19:39)
[2023-12-11 11:13] VITALS: TEMP 97.9
[2023-12-11] MEDS: Heparin 5,000 UNITS/ML VIAL SC SCH (15:29)
[2023-12-11 16:07] VITALS: BP 147/82
== END 2023-12-11 17:33 | DRG 492 ==
LOC: SURG B 07:41 → UNDOADMIN 07:41 → SURG B 08:30 → 2NO 12-07 20:48 → SURG B 12-07 20:48 → 2NO 12-10 19:06 → UNDODISIN 12-11 17:33
PROVIDERS: ADMIT Surgery; ATTEND Surgery
PROC: 0QHG06Z Insertion of Intramedullary Internal Fixation Device into Right Tibia, Open Approach (ICD-10-PCS; principal; 2023-12-07)
PROC: 5A1D70Z Performance of Urinary Filtration, Intermittent, Less than 6 Hours Per Day (ICD-10-PCS; 2023-12-11)
DX: S82.141A Displaced bicondylar fracture of right tibia, initial encounter for closed fracture (principal); N18.6 End stage renal disease; I12.0 Hypertensive chronic kidney disease with stage 5 chronic kidney disease or end stage renal disease; W18.30XA Fall on same level, unspecified, initial encounter; E10.22 Type 1 diabetes mellitus with diabetic chronic kidney disease; F32.A Depression, unspecified; K21.9 Gastro-esophageal reflux disease without esophagitis; S82.831A Other fracture of upper and lower end of right fibula, initial encounter for closed fracture; E87.5 Hyperkalemia; F41.1 Generalized anxiety disorder; E66.01 Morbid (severe) obesity due to excess calories; Z68.35 Body mass index [BMI] 35.0-35.9, adult; Z88.2 Allergy status to sulfonamides; Z88.1 Allergy status to other antibiotic agents; Z99.2 Dependence on renal dialysis
CPT/HCPCS: 36415; 36416; 80048; 85025; 86704; 86706; 86803; 87340; 90935; 93005; 93010; 94640; C1713; C1769; G0257; J0360; J0612; J1100; J1170; J1644; J1815; J2250; J2272; J2405; J2470; J2550; J2704; J3010; J7070; J7512; J7611; J7999